=== PATIENT | male | born 1975 | race Caucasian/White ===

== ENCOUNTER 2021-06-03 01:09 | Outpatient (CLI) | payer MEDICAID, SELFPAY ==
--- NOTE | 2021-06-03 | DI.MRI_ITS ---
Exam(s) MR LOWER JOINT RT WO EXAM: MR LOWER JOINT RT WO CLINICAL HISTORY: LIGAMENTOUS LAXITY OF RT KNEE, M23.91, FAILED CONSERVATIVE MEASURES TECHNIQUE: Multiplanar multisequence MRI of the knee was performed. COMPARISON: No plain films of the knee available time this MRI interpretation FINDINGS: EFFUSION: There is a moderate size knee joint effusion. There is no Hoffmann cyst in the popliteal tejas a. MARROW:There are no fractures but there is some bone contusion signal seen in the anterior aspect of the distal femoral metaphysis. Also mild bone edema evident in the medial tibial plateau, posteriorl y. There are no significant osseous lesions. PATELLOFEMORAL COMPARTMENT: The quadriceps tendon is intact. The patellar ligament is intact. There is some fluid in the subcutaneous tissues evident anterior to the patellar ligament, consistent with an element of prepatellar bursitis. No abnormal signal within the intra-articular Hoffa fat pad nor at the level the quadriceps fat pad. There is surface abnormality of the retropatellar cartilage over the mid facet level with some focal thinning at this level and there is focal bone edema in the posterior aspect of the patella at the it s exact level. No formed osteochondral defect.There is no intraosseous signal to suggest recent galicia llar dislocation. There are no patellar retinacular tears. CRUCIATE LIGAMENTS: The anterior cruciate ligament is intact.The posterior cruciate ligament is intac t. MEDIAL COMPARTMENT/MEDIAL MENISCUS: Anterior horn of the medial meniscus appears unremarkable. At th e level of the root of the posterior horn there is intrasubstance signal abnormality but does not brandy ear to be a complete tear at this level. No bucket-handle configuration. Min no meniscocapsular sep aration no meniscal extrusion nor intrusion.. There are no chondral defects, osteochondral defects, subarticular marrow edema, nor osteophytes evid ent. MEDIAL COLLATERAL LIGAMENT: There is signal abnormality in the MCL slightly above the joint line junc tion with the medial patellar retinaculum, consistent with partial tearing. LATERAL COMPARTMENT/LATERAL MENISCUS: There is no evidence of lateral meniscal tear.There are no olaf dral defects, osteochondral defects, subarticular marrow edema, nor osteophytes evident. ILIOTIBIAL BAND: Intact LATERAL COLLATERAL LIGAMENT COMPLEX: The fibular collateral ligament is intact. The biceps femoris t endon is intact.Popliteus muscle and tendon are intact. IMPRESSION: 1. There is significant focal signal in the retropatellar cartilage over the mid facet level with mil d loss of cartilage over a width of 1 cm at this level (not full-thickness). There is immediately watson bjacent area of edema in the posterior patella at this level measuring 7 x 7 x 7 millimeters. There is also some edema evident within the corresponding anterior aspect of the intercondylar region of th e distal femur. There is also some cartilage loss at this level, more so medially than laterally. 2. Prepatellar subcutaneous edema and small amount of fluid. No tear of the quadriceps and patellar ligaments. 3. Mild tearing at the junction of the MCL and medial patellar retinaculum. 4. Mild findings at the level root of the posterior horn of the medial meniscus. Increased signal bu t doubtful for true meniscal tear at this level. 1. Cruciate ligaments are intact although there is a an 8 x 7 millimeter cyst associated with the inf erior aspect ACL, adjacent of the intimately associated with its distal lateral aspect. DATA REPOSITORY:
== END 2021-06-03 01:29 ==
PROVIDERS: Visit Provider Family Medicine
DX: M23.91 Unspecified internal derangement of right knee (principal); R93.7 Abnormal findings on diagnostic imaging of other parts of musculoskeletal system
CPT/HCPCS: 73721

== ENCOUNTER → 2021-09-16 02:12 | Outpatient (CLI) | payer MEDICAID, SELFPAY ==
--- NOTE | 2021-09-16 06:45 | DI.MRI_ITS ---
Exam(s) MR LOWER JOINT RT WO EXAM: MR LOWER JOINT RT WO CLINICAL HISTORY: internal derangement,chondromalacia rt patella, rt knee pain,m23.91,m22.41. TECHNIQUE: Multiplanar multisequence MRI was performed. COMPARISON: MR MR LOWER JOINT RT WO from 06/03/2021 FINDINGS: BONES: There is no fracture or contusion pattern. JOINTS: Articular cartilage: Mild thinning at the patellar apex cartilage. Some underlying high sign al. Minimal adjacent high signal in the marrow, improved from prior.. A small joint effusion is pre sent. TENDONS: Extensor mechanism: Unremarkable. Medial retinaculum: Unremarkable. Lateral retinaculum: Unremarkable. Popliteus: Unremarkable. MUSCLES: Unremarkable. MENISCI: The medial meniscus is unremarkable. The lateral meniscus is unremarkable. SOFT TISSUES: Mild anterior subcutaneous edema. LIGAMENTS: Anterior Cruciate: Unremarkable. Decreased size of previously noted cyst adjacent to the distal asp ect, tibial insertion of the ACL, now measuring 2 x 3 by 4 millimeters. Posterior Cruciate: Unremarkable. Medial Collateral:Unremarkable. Lateral Collateral: Unremarkable. OTHER: IMPRESSION: No evidence of ligament or meniscal tear. 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 Joint effusion. DATA REPOSITORY:
== END ==
PROVIDERS: PCP Family Medicine; Visit Provider Student in an Organized Health Care Education/Training Program
DX: M22.41 Chondromalacia patellae, right knee (principal); M23.91 Unspecified internal derangement of right knee; M25.461 Effusion, right knee
CPT/HCPCS: 73721

== ENCOUNTER 2021-09-16 08:33 | Emergency (ER) | payer MEDICAID, SELFPAY ==
[2021-09-16 08:36] VITALS: BP 134/91; PULSE 57; RESP 18; TEMP 35.9; O2SAT 100
--- OUTSIDE RECORDS SUMMARY | 2021-09-16 08:39 | XMS_ITS | Clinical Summary ---
:1975 Author Organization [facility] [place] [address] Care Team Providers Name Role Phone Shanell Ritter MD Primary Care Provider Allergies No known active allergies Medications Medication Sig Dispensed Refills Start Date End Date Status cyclobenzaprine Take 5 mg by 0 A ctive (FLEXERIL) 5 mg Tablet mouth 3 times daily as needed for Muscle spasms. HYDROcodone-acetaminophen Take 1 tablet 0 Active 5-325 mg Tablet by mouth every 6 hours as needed for Pain. Active Problems Problem Noted Date Right lumbar radiculitis 02/18/2014 Tinea corporis 11/08/2013 Thoracic or lumbosacral neuritis or radiculitis, unspe cified 04/03/2013 Low back pain 01/25/2013 Lumbar disc herniation with radiculopathy, Left L5 Social History Tobacco Use Types Packs/Day Years Used Date Never Smoker Smokeless Tobacco: Never Used Alcohol Use Standard Drinks/Week Comments Yes 0 (1 standard drink = 0.6 oz pure alcoho l) occsional Alcohol Habits Answer Date Recorded How often do you have a drink containing alcohol? Not asked How many drinks containing alcohol do you have on a typical Not asked day when you are drinking? How often do you have six or more drinks on one occasion? No t asked Comment: occsional 05/01/2013 Sex Assigned at Date Recorded Not on file Last Filed Vital Signs Vital Sign Reading Time Taken Comments Blood Pressure 120/68 02/18/2014 2:31 PM EST Pulse 53 05/02/2013 12:00 PM EST Temperature 36.6 ??C (97.9 ??F) 05/02/2013 9:25 AM EST Respiratory Rate 18 05/02/2013 12:00 PM EST Oxygen Saturation 100% 05/02/2013 12:00 PM EST Inhaled Oxygen Concentration - - Weight 93 kg (205 lb) 02/18/2014 2:31 PM EST Height 172.7 cm (5' 8) 02/18/2014 2:31 PM EST Body Mass Index 31.17 02/18/2014 2:31 PM EST Plan of Treatment Health Maintenance Due Date Last Done Comments Covid-19 Vaccine (#1) 12/13/1979 HIV screen 1992 Hepatitis C Screening 1992 Lipid Screening 1992 Tdap adult 1993 Tetanus vaccine 1993 Colonoscopy 12/13/2019 Influenza (Flu) vaccine (1 of 1 - Influenza standard 11/12/2021 series) Care Teams Process Safety Manager Relationship Specialty Start Date End Date Shanell Ritter MD PCP - General 02/19/[address] [place] [address]
--- OUTSIDE RECORDS SUMMARY | 2021-09-16 08:39 | XMS_ITS | Encounter Summary ---
:1975 Author Organization [facility] [place] [address] Care Team Providers Name Role Phone Shanell Ritter MD Primary Care Provider Encounter Details Date Type Department Care Team Description 05/27/2021 Interpretation Only [facility] [place], [place] [address] [address] [place], [place] [phone] (Wo rk) Social History Tobacco Use Types Packs/Day Years [...] Assigned at Date Recorded Not on file documented as of this encounter Plan of Treatment Not on filedocumented as of this encounter Procedures Procedure Name Priority Date/Time Associated Diagnosis Comme nts XR KNEE 4 OR MORE Routine 05/27/2021 10:50 AM Res ults for this VIEWS LEFT EDT procedure are i n the results section. documented in this encounter Results XR Knee 4 or more views Left (05/27/2021 10:50 AM EDT) P athologist Signature PT CLASS O DH RAD ADMITDTTM DH RAD PT RAD INFO [id number]^GE DH RAD NEREAUX^WILMA EN^H EXAM DESC XKN4L^XR LEFT RAD KNEE COMPLETE (4VIEWS)^RIS Anatomical Region Laterality Modality Knee Left Radiographic Imaging Specimen (Source) Anatomical Location Collection Method / Collectio n Time Received Time / Laterality Volume Impressions 05/27/2021 10:55 AM EDT No acute fracture or dislocation. Maintained joint spaces. No effusion. A tiny ossific density in the distal portion of the quadriceps tendon immediately above the insertion upon the upper pole of the patella. Thank you for letting us participate in the care of this patient. ??If you are a health care provider and have any questi ons regarding this report, please contact the number below. ??For patients who have questions please contact the health post acute care nurse practitioner that requested your imaging first. ? Electronically signed by: Chandler garsia MD, [facility] ([phone]), at 05/27/2021 10:55 AM Narrative 05/27/2021 10:55 AM EDT EXAMINATION: XR LEFT KNEE COMPLETE (4VIEWS) CLINICAL HISTORY: Pain of left patella. ??Anterior superior patellar irritation/pain left knee TECHNIQUE: 4 views of the left knee COMPARISON: None FINDINGS: See impression. Procedure Note Chandler Adams MD - 05/27/2021For matting of this note might be different from the original. EXAMINATION: XR LEFT KNEE COMPLETE (4VIE WS) CLINICAL HISTORY: Pain of left patella. Anterior superior patellar irritation/pain left knee TECHNIQUE: 4 views of the left knee COMPARISON: None FINDINGS: See impression. IMPRESSION No acute fracture or dislocation. Mainta ined joint spaces. No effusion. A tiny ossific density in the distal portion of the quadriceps tendon immediately above the insertion upon the upper pole of the patella. Thank you for letting us participate in the care of this patient. If you are a health care provider and have any questi ons regarding this report, please contact the number below. For patients w ho have questions please contact the health post acute care nurse practitioner that requested your imaging first. Abdiaziz Hurt MD IMG DX ORDERABLES documented in this encounter Visit Diagnoses Not on filedocumented in this encounter Care Teams Band Attacher Relationship Specialty Start Date End Date Shanell Ritter MD PCP - General 02/19/14 [address] [place] [address] documented as of this encounter
--- OUTSIDE RECORDS SUMMARY | 2021-09-16 08:40 | XMS_ITS | Encounter Summary ---
:1975 Author Organization [facility] [place] [address] Care Team Providers Name Role Phone Lori Adorno APRN Primary Care Provider Encounter Details Date Type Department Care Team Description 03/29/2013 Telephone Pain Management at [facility] [place], [place] [address] Social History Tobacco Use Types Packs/Day Years Used Date Never Smoker Smokeless Tobacco: Never Used Sex Assigned at Date Recorded Not on file documented as of this encounter Miscellaneous Notes Telephone Encounter - Xin Sal RN - 03/29/2013 10:40 AM EST Fluoroscopy Procedure Request Procedure Requested: lumbar epidural steroid injection. Date(s) of Last Procedure: 01/25/2013 Did requested procedure relieve pain? __x_ Yes - For 3 weeks. ___ No Patient taking anticoagulants? _x__ No ___ Yes Patient has pacemaker/defibrillator: No Changes in usual pain pattern or pertinent recent trauma or surgery? __x_ No, patient transferred or will be contacted by medical scheduler to make appointment for requested procedure. ___ Yes, patient referred for re-evaluation by referring provider. Patient's questions regarding requested procedure were answered and patient verbalized understanding. Patient knows how to contact the Pain Management Center and understands that they may do so at any time should they have further questions or concerns. Xin Sal RN documented in this encounter Plan of Treatment Not on filedocumented as of this encounter Visit Diagnoses Not on filedocumented in this encounter Care Teams Lead Developer Relationship Specialty Start Date End Date Lori Adorno APRN PCP - General 01/10/13 02/18/[address] [place] [address] documented as of this encounter
--- OUTSIDE RECORDS SUMMARY | 2021-09-16 08:40 | XMS_ITS | Encounter Summary ---
:1975 Author Organization [facility] [place] [address] Care Team Providers Name Role Phone Lori Adorno APRN Primary Care Provider Reason for Visit Reason Onset Date Comments Other 03/26/2013 follow up to injecti on Encounter Details Date Type Department Care Team Description 03/26/2013 Telephone Spine Center at [facility] non Akiko Matias Other (follow up to [facility] injection ) [place] [address] Social History Tobacco Use Types Packs/Day Years Used Date Never Smoker Smokeless Tobacco: Never Used Sex Assigned at Date Recorded Not on file documented as of this encounter Miscellaneous Notes Telephone Encounter - Akiko Matias RN - 03/26/2013 9:57 AM EST Received call from Mr. Zapata in follow up to his injection. He reports he felt a little better butstill is not able to do the things he would like to. He continues to have low back pain and left legpain. He is interested in moving forward with the MRI as previously discussed. Case was reviewed with Jenaro Butler PA-C. MRI order was placed. Scheduling was notified to contact the patient. 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
--- OUTSIDE RECORDS SUMMARY | 2021-09-16 08:40 | XMS_ITS | Encounter Summary ---
:1975 Author Organization [facility] [place] [address] Care Team Providers Name Role Phone Lori Adorno APRN Primary Care Provider Encounter Details Date Type Department Care Team Description 05/01/2013 External Results [place] [address] Social History Tobacco Use Types Packs/Day [...] on filedocumented in this encounter Care Teams Universal Worker Assisted Living Relationship Specialty Start Date End Date Lori Adorno APRN PCP - General 01/10/13 02/18/[address] [place] [address] documented as of this encounter
--- OUTSIDE RECORDS SUMMARY | 2021-09-16 08:40 | XMS_ITS | Encounter Summary ---
:1975 [place] [address] Care Team Providers Name Role Phone Lori Adorno APRN Primary Care Provider Encounter Details Date Type Department Care Team Description 01/25/2013 Orders Only [facility] [place] [facility] Krista Luque MD [facility] [place] [address] PAIN CLINIC [phone] [place], [place] [address] (Wo rk) Social History Tobacco Use Types Packs/Day Years Used Date Never Smoker Smokeless Tobacco: Never Used Sex Assigned at Date Recorded Not on file documented as of this encounter Plan of Treatment Pending Results Name Type Priority Associated Diagnoses Date/Ti me Film Library-storage Imaging Routine 013 1:00 PM EST only pain clinic C-arm Scheduled Orders Name Type Priority Associated Diagnoses Order S chedule Film Library-storage Imaging Routine Once NC N (for Radiant use) only pain clinic for 1 Occur rences starting C-arm 01/25/2013 unti l 01/25/2013 documented as of this encounter Visit Diagnoses Not on filedocumented in this encounter Care Teams Seo Expert Relationship Specialty Start Date End Date Lori Adorno APRN PCP - General 01/10/13 02/18/14 [address] [place] [address] documented as of this encounter
--- OUTSIDE RECORDS SUMMARY | 2021-09-16 08:40 | XMS_ITS | Encounter Summary ---
:1975 Author Organization [facility] [place] [address] Care Team Providers Name Role Phone TilaLori ANTHONY Primary Care Provider Reason for Referral Consultation (Routine) - Closed Specialty Diagnoses / Procedures Referred By Contact Refer red To Contact Pain Management Diagnoses Neuritis or radiculitis due to displacement of lumbar intervertebral disc [facility] [address] [address] [place] [address] Phone: Fax: Referral ID Status Reason Start Date Expiration Date Visits Requ ested Visits Authorized [id number] Closed Other 01/10/2013 07/09/2013 3 3 Reason for Visit Reason Comments Back Pain Encounter Details Date Type Department Care Team Description 01/10/2013 Office Visit Spine Center at Jenaro Butler, Neuritis or radiculitis [place] PA due to displacement of [facility] in tervertebral [facility] [address] (Primary Dx) [place], [place] [facility] [address] [place] [address] [phone] Social History Tobacco Use Types Packs/Day Years Used Date Never Smoker Smokeless Tobacco: Never Used Sex Assigned at Date Recorded Not on file documented as of this encounter Last Filed Vital Signs Vital Sign Reading Time Taken Comments Blood Pressure 110/64 01/10/2013 9:22 AM EDT Pulse - - Temperature - - Respiratory Rate - - Oxygen Saturation - - Inhaled Oxygen Concentration - - Weight 90.7 kg (200 lb) 01/10/2013 9:22 AM EDT Height 172.7 cm (5' 8) 01/10/2013 9:22 AM EDT Body Mass Index 30.41 01/10/2013 9:22 AM EDT documented in this encounter Progress Notes Jenaro Butler PA - 01/10/2013 11:28 AM EDT Chief Complaint: Chief Complaint Patient presents with ??? Back Pain HPI: This patient is a 37 y.o. male that presents to the spine center for Chronic low back pain withleft radicular symptoms. I previously saw this patient about 2 years ago and he responded favorably to an LESI. However he indicates that later that year around August of 2010 his symptoms started to redevelop, and he relates it to a new injury. He has been attempting to manage his symptoms with just physical therapy but has not found this to be successful. His primary pain is low back pain which is constant we will get episodic shooting pain in the left leg traveling down the posterior thigh into theshin. He feels his pain has been progressively worsening and is decreasing his ability to do work. He does not report any numbness or tingling. He rates his pain currently as a 3/10 with pain ranging between 1-7. His symptoms are aggravated primarily with physical activity such as bending and lifting,but also to be worsened with inactivity he feels best laying supine. There is no bowel or bladder inc ontinence. Recent treatments have included physical therapy and ibuprofen but he has had an LESI. Johan has had an L5-S1 discectomy performed in 2006. There is no history of cancer. ROS: Negative for any GI, or constitutional symptoms. Medications & Allergies: Are updated on the system. Problem List: Patient Active Problem List Diagnosis Code ??? left L5 radiculitis due to displacement of lumbar intervertebral disc 722.10 PMH: No past medical history on file. PSH: No past surgical history on file. Social Hx: History Social History ??? Marital Status: Spouse Name: N/A Number of Children: N/A ??? Years of Education: N/A Occupational History ??? Not on file. Social History Main Topics ??? Smoking status: Never Smoker ??? Smokeless tobacco: Never Used ??? Alcohol Use: Not on file ??? Drug Use: Not on file ??? Sexually Active: Not on file Other Topics Concern ??? Not on file Social History Narrative ??? No narrative on file Physical Exam: This patient is a reasonably healthy appearing 37-year-old male is alert and oriented x3. He stands without any scoliosis. He relates with a nonantalgic gait and was able to toe and heel walk. He has recently good lumbar flexion and extension which primarily cause low back pain. Neurologically sensation, reflexes and motor testing were intact in both lower extremity. Straight leg raise on the left isnegative with only low back pain. Babinski and clonus are negative. Distal pulses are intact. Imaging: His previous MRI from 2010 demonstrates that he did have postsurgical changes at L5-S1 withdisc space collapse at this level. He also degenerative changes to the discs mildly at L3-L4 and L4-L5 but there was a left paracentral disc protrusion at L4-L5 causing the L5 nerve root compression. Assessment: Continued chronic mechanical low back pain with left radicular symptoms likely associated with disc herniation at L4-L5. Plan: I have reviewed with the patient that his symptoms are likely still consistent with a disc herniation although his primary symptom his low back pain. I reviewed surgical and nonsurgical treatmentoptions with the patient. If he would like to proceed with repeating an LESI he is welcome to do this without updating images at this time. However if his symptoms do not improve or if he is more interested in a surgical consultation, then we would need to update the MRI for the surgeon. The patient indicates that he would not like to proceed with further therapy at this time as he has not found significant improvement in this manner. He is not strongly interested in surgery at this time. He thinks p roceeding with the LESI would be reasonable. We also discussed the functional quaker program asan option. After our discussion and answering the patients questions, we have come to an aggreement in the below stated plan: 1) I have referred the patient to the pain center for a trial of an LESI and He will call the spine center nursing staff back about 3-4 weeks after the injection to report the outcomes of the injection. If he is better then we can watch and wait to see what his symptoms return or if they do, if they do decide at that time whether to proceed with the MRI or repeat the injection. If he is no better, I would update the MRI with and without contrast in followup with him after the images are complete consider a surgical consult. This dictation was performed using [employer] voice recognition dictation. 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
--- OUTSIDE RECORDS SUMMARY | 2021-09-16 08:40 | XMS_ITS | Encounter Summary ---
:1975 Author Organization [place] [address] Care Team Providers Name Role Phone Lori Adorno APRN Primary Care Provider Reason for Visit Reason Onset Date Comments Pre Procedure Call 04/20/2013 Encounter Details Date Type Department Care Team Description 04/20/2013 Telephone [facility] Josefina Houston, Pre Procedure Call [facility] [place] [phone] Social History Tobacco Use Types Packs/Day Years Used Date Never Smoker Smokeless Tobacco: Never Used Sex Assigned at Date Recorded Not on file documented as of this encounter Miscellaneous Notes Telephone Encounter - Josefina Bolivar LPN - 04/20/2013 2:19 PM EST Call placed to patient; patient unavailable; answered phone and stated he was unavailable. Advised , Fco needed to hold anticoagulants, NSAIDs, ASA products, and FishOil for 7-10 days preoperatively. Reviewed medication/allergy list; updated. voiced understanding for patient to stop all anticoagulants, NSAID's, ASA products and fish oilfor 7-10 days preoperatively. [place] get in touchwith him TANYA. Patient has not had his FLU or Pneumonia immunizations. Phone number and office hours given if the patient had any questions prior to surgery. documented in this encounter Plan of Treatment Not on filedocumented as of this encounter Visit Diagnoses Not on filedocumented in this encounter Care Teams Lap Machine Tender Relationship Specialty Start Date End Date Lori Adorno APRN PCP - General 01/10/13 02/18/[address] [place] [address] documented as of this encounter
--- OUTSIDE RECORDS SUMMARY | 2021-09-16 08:40 | XMS_ITS | Encounter Summary ---
:1975 Author Organization [facility] [place] [address] Care Team Providers Name Role Phone Jenaro Pena MD Primary Care Provider [phone] Encounter Details Date Type Department Care Team Description 04/30/2011 Hospital Encounter [facility], Left L5/S1 radiculitis [facility] CONV due to di splacement of Drive lumbar [place] disc [phone] Social History Tobacco Use Types Packs/Day Years Used Date Never Smoker Smokeless Tobacco: Never Used Sex Assigned at Date Recorded Not on file documented as of this encounter Medications at Time of Discharge Medication Sig Dispensed Refills Start Date End Date methylPREDNISolone Take 1 tablet by 21 tablet 0 04/28/2011 05/28/2011 (MEDROL, OANH,) 4 mg mouth. Per dose tabletIndications: pack instructions Neuritis/radiculitis due to displacement of lumbar intervertebral disc traMADol (ULTRAM) 50 mg Take 50 mg by mouth 0 05/28/2011 tablet as needed. acetaminophen (TYLENOL) Take by mouth every 0 05/28/2011 325 mg tablet 6 hours as needed. naproxen (NAPROSYN) 375 mg Take 375 mg by 0 05/28/2011 tablet mouth 2 times daily (with meals). documented as of this encounter Miscellaneous Notes Miscellaneous - Provider, Scanning - 05/11/2011 1:48 PM EST documented in this encounter Plan of Treatment Not on filedocumented as of this encounter Procedures Procedure Name Priority Date/Time Associated Diagnosis Comme nts MRI LUMBAR SPINE Routine 04/30/2011 8:54 AM Left L5/S1 radicul itis Results for this WITH/WO CONTRAST EST due to displacement of p rocedure are in lumbar intervertebral the re sults disc section. documented in this encounter Results MRI lumbar spine with/WO contrast (04/30/2011 8:54 AM EST) Anatomical Region Laterality Modality L-spine Magnetic Resonance Specimen (Source) Anatomical Collection Method Collection Time Re ceived Time Location / / Volume Laterality 04/30/2011 8:54 AM EST Impressions 04/30/2011 2:54 PM EST IMPRESSION: ??Left paracentral disk extrusion at L4-5 narrowing the lateral recess and contacting the left L5 root. Narrative 04/30/2011 2:54 PM EST MR LUMBAR SPINE WITH AND WITHOUT CONTRAST HISTORY: ??Back and left radicular pain post L5-S1 diskectomy for radicular symptoms, question HNP versus scar. TECHNIQUE: ??MRI of the lumbar spine per formed prior to and following intravenous administration of 20 mL Magn evist. CONTRAST: ??20 mL Magnevist. COMPARISON: ??MR 10/11/2006 FINDINGS: ??Overall alignment of the lum bar spine is normal. ??There are no aggressive marrow lesions. ??Visualizati on of the retroperitoneum is normal. ?? Normal appearing conus terminates at the L2 level. ?? Findings at specific levels: L1-2: ??Normal. L2-3: ??Normal. L3-4: ??There are disk degenerative goetz ges. ??An annular fissure is present. ??No central canal narrowing is present. ??Th ere is no foraminal narrowing. L4-5: ??Left paracentral disk extrusion is present with caudal migration. ??There is a small amount of enhancement at the margins. ??Disk extrusion narrows the lateral recess and appears to contact th e traversing left L5 root. L5-S1: ??Postsurgical changes are presen t. ??There is enhancing material at the disk space anteriorly. ??There is slight retrolisthesis of L5 on S1. ??No significant central canal narrowing is p resent. ??There is facet arthropathy with mild bilateral neural foraminal jagjit rowing. Procedure Note Abdiaziz Petersen MD - 04/30/2011Format ting of this note might be different from the original. MR LUMBAR SPINE WITH AND WITHOUT CONTRAS T HISTORY: Back and left radicular pain po st L5-S1 diskectomy for radicular symptoms, question HNP versus scar. TECHNIQUE: MRI of the lumbar spine perfo rmed prior to and following intravenous administration of 20 mL Magn evist. CONTRAST: 20 mL Magnevist. COMPARISON: MR 10/11/2006 FINDINGS: Overall alignment of the lumba r spine is normal. There are no aggressive marrow lesions. Visualization of the retroperitoneum is normal. Normal appearing conus terminates at the L2 level. Findings at specific levels: L1-2: Normal. L2-3: Normal. L3-4: There are disk degenerative change s. An annular fissure is present. No central canal narrowing is present. Ther e is no foraminal narrowing. L4-5: Left paracentral disk extrusion is present with caudal migration. There is a small amount of enhancement at the margins. Disk extrusion narrows the lateral recess and appears to contact th e traversing left L5 root. L5-S1: Postsurgical changes are present. There is enhancing material at the disk space anteriorly. There is slight r etrolisthesis of L5 on S1. No significant central canal narrowing is p resent. There is facet arthropathy with mild bilateral neural foraminal jagjit rowing. IMPRESSION IMPRESSION: Left paracentral disk extrus ion at L4-5 narrowing the lateral recess and contacting the left L5 root. 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
--- OUTSIDE RECORDS SUMMARY | 2021-09-16 08:40 | XMS_ITS | Encounter Summary ---
:1975 Author Organization [facility] [address] Care Team Providers Name Role Phone Jenaro Pena MD Primary Care Provider Reason for Referral Physical Therapy (Routine) - Closed Specialty Diagnoses / Procedures Referred By Contact Refer red To Contact Physical Therapy Diagnoses Neuritis/radiculitis due to displacement of lumbar intervertebral disc [facility] Spine Pt [facility] [place] [place] [phone] Phone: Referral ID Status Reason Start Date Expiration Date Visits V isits Requested Authorized [id number] Closed Evaluate and 03/17/2011 09/13/2011 12 12 Treat Reason for Visit Reason Comments Back Pain Encounter Details Date Type Department Care Team Description 03/17/2011 Office Visit [facility], Left L5/ S1 radiculitis [place] due to displacement of [facility] lumbar in tervertebral [facility] [address]tt (Primary Dx) [place], [place] [facility] [id number] [place] [address] [phone] Social History Tobacco Use Types Packs/Day Years Used Date Never Smoker Sex Assigned at Date Recorded Not on file documented as of this encounter Last Filed Vital Signs Vital Sign Reading Time Taken Comments Blood Pressure 175/81 03/17/2011 8:48 AM EST Pulse 110 03/17/2011 8:48 AM EST Temperature - - Respiratory Rate - - Oxygen Saturation 99% 03/17/2011 8:48 AM EST Inhaled Oxygen Concentration - - Weight 89.8 kg (198 lb) 03/17/2011 8:49 AM EST Height 175.3 cm (5' 9) 03/17/2011 8:49 AM EST Body Mass Index 29.24 03/17/2011 8:49 AM EST documented in this encounter Progress Notes [facility] PA - 03/17/2011 9:57 AM EST Subjective: Patient ID: Fco Zapata is a 35 y.o. male. Back Pain This is a recurrent problem. The current episode started in the past 7 days. The problem occurs constantly. The problem has been gradually worsening since onset. The pain is present in the lumbar spineand gluteal. The pain radiates to the left thigh and left foot. The pain is at a severity of 4/10. The symptoms are aggravated by sitting, standing and bending. Associated symptoms include leg pain, numbness and tingling. Pertinent negatives include no bladder incontinence, bowel incontinence, fever, weakness or weight loss. Risk factors: s/p L5-S1 diskectomy. He has tried NSAIDs, muscle relaxant andanalgesics for the symptoms. The treatment provided no relief. Review of Systems Constitutional: Negative for fever, chills and weight loss. Gastrointestinal: Positive for constipation. Negative for bowel incontinence. Genitourinary: Negative. Negative for bladder incontinence. Musculoskeletal: Positive for back pain. Neurological: Positive for tingling and numbness. Negative for weakness. Objective: Physical Exam Back Exam Sensation: Decreased. Gait: Antalgic. Tenderness The patient is experiencing tenderness in the L5-S1. Range of Motion Flexion: 20 Extension: 10 Lateral Bend Left: Lateral Bend Right: Rotation Right: Rotation Left: SLR Right: Negative Left: Positive Tests Toe Walk: Normal Heel Walk: Normal Reflexes Patellar: 2/4 Achilles: 2/4 Babinski: Normal Comments: Alignment: no scoliosis, he stands offloading his left leg. There is a surgical scar in the midline at L5-S1. Gait: antalgic on the left. ROM: there was back and leg pain with flexion and extension. Sensation: decreased in the left leg at the foot and lateral/posterior calf. SLR: positive inthe seated and supine position. Negative CSLR. No clonus. Distal pulses are intact. Neurologic Exam Assessment and Plan: Imaging: There are no current images for the lumbar spine, but there was an old MRI from 2006 on [facility] [place] indicated a disk extrusion at L5-S1 to the right. Assessment: Acute left L5/S1 radicular symptoms. In Summary: This patient is a 35-year-old male that is status post L5-S1 diskectomy performed in 2006 for right radicular symptoms have significantly improved his pain symptoms but did leave him with episodic back pain symptoms. About 1 month ago he noticed a slight increases back pain from the usual level and then about a week and a half ago he suddenly developed an acute onset of left leg pain symptoms that he feels is very similar to his prior right radicular symptoms. His leg pain and follows the posterior thigh into the lateral calf with tingling and numbness along the lateral foot and dorsal aspect of the foot. He feels his leg pain is worse than his back pain at 70% leg pain. He rates his pain between a 3-9/10. He feels worse with sitting or standing positions and feels better lying supine. 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 He is not certain if there is any specific weakness but he does not describe any bowel or bladder incontinence. To this point he is only been treated with pain medications such as tramadol, Tylenol, naproxen and Flexeril. He reports his primary care physician tried to order an MRI but this was rejected by his [employer]. His physical exam findings reveals that he is a fairly fit and healthy [id number] but is laying on the table in clear discomfort. He was able to stand up slowly and emulate withan antalgic gait on his left leg. He stood offloading the left leg and had limited lumbar range of motion with only about 10-20 degrees of motion in flexion or extension which caused both back and leg pain symptoms. Neurologically he had decreased sensation in his left foot and also in the lateral andposterior calf and there was some mild weakness with plantar flexion. His reflexes were normal. He did have a positive straight leg raise on the left in both the seated and supine positions. He did appear to be able to toe and heel walk although this could increase some of his calf pain symptoms. Thisleads me to feel the patient is dealing with an acute left L5/S1 radiculopathy from a likely disk herniation in his lumbar spine. Plan: I have discussed the diagnosis of disk herniations with the patient, and the fact that these symptoms are hurtful and not harmful. Treatments are based on a patient preference at this time. I diddiscuss the SPORT study which indicates that surgery is the best immediated treatment for these symptoms, but with time most patients will have improvement with their symptoms in 3-6 months. I encouraged the patient to stay active, with swimminga and walking activities, as they will not do any harm tothemselves. Other treatment options include: physical therapy with a Jonnathan based program, NSAIDS/Tylenol, LESI and surgery. I did discuss with the patient that is not uncommon for insurance companies to deny an MRI with the patient who has acute pain symptoms. Most patients who have these symptoms will improve within a few weeks. I have suggested attempting physical therapy here in the spine center, as I understand he is doing some physical therapy locally but the therapist has been limited as towhat can be offered. I feel are therapist may be able to give him some further guidance to see if hemechanically can improve his pain symptoms. I also recommended doing a steroid dose pack as this mayprovide some acute reduction in his pain symptoms and move them in the right direction. I will attempt to order an MRI for the lumbar spine, but this may be again denied by his insurance company until he attempts further physical therapy and a steroid Dosepak. I've again discussed that these symptoms are hurtful and not harmful and we'll not provide any long-term concerns. His greatest concern would be his financial strain, and while I do understand that this is a difficult situation, I can only offer him treatments that are considered to be reasonable at this time frame. We did also discuss that if the disk herniation is not of significant size presuming that there is also a disk herniation present, then an epidural steroid injection may be the recommended option over surgery. After our discussion and answering the patients questions, we have come to an aggreement in the below stated plan: 1) I did order an MRI with gadolinium of the lumbar spine to evaluate if there is a disk herniation or scar tissue. I will followup with the patient after the MRI has been performed. 2) I have referred the patient to physical therapy in the Spine Center, to be treated with a mechanical, Jonnathan based approach, and consider Mulligan techniques. 3) I have wrote a prescription for a Medrol Dosepak which he will take as prescribed. documented in this encounter Plan of Treatment Scheduled Referrals Name Type Priority Associated Diagnoses Order S chedule REFERRAL TO Outpatient Referral Routine Left L5/S1 radiculiti s Ordered: PHYSICAL THERAPY due to displacement of 0 03/17/2011 lumbar intervertebral disc documented as of this encounter Results MRI lumbar spine with/WO [...] to displaceme nt of lumbar intervertebral disc - Primary Displacement of lumbar intervertebral di sc without myelopathy Left L5/S1 radiculitis due to displaceme nt of lumbar intervertebral disc Displacement of lumbar intervertebral di sc without myelopathy documented in this encounter Care Teams Tire Vulcanizer Relationship Specialty Start Date End Date Jenaro Pena MD PCP - General 03/16/11 01/09/[address] [place] [address] documented as of this encounter
--- OUTSIDE RECORDS SUMMARY | 2021-09-16 08:40 | XMS_ITS | Encounter Summary ---
:1975 Author Organization [facility] [place] [address] Care Team Providers Name Role Phone Lori Adorno APRN Primary Care Provider Reason for Visit Reason Onset Date Comments Follow-up 05/02/2013 Encounter Details Date Type Department Care Team Description 05/02/2013 Telephone [facility] PA Follow-up [facility] [place] [phone] [facility] [phone] [place] [id number] (Wo rk) Social History Tobacco Use Types [...] this encounter Miscellaneous Notes Telephone Encounter - Jenaro Butler PA - 05/02/2013 2:56 PM EST I have contacted the PCP office today to confirm that she had seen the MRI report with the un-expecting finding on it. One of the nursing staff confirmed that it has been received and reviewed. documented in this encounter Plan of Treatment Not on filedocumented as of this encounter Visit Diagnoses Not on filedocumented in this encounter Care Teams Chronometer Assembler And Adjuster Relationship Specialty Start Date End Date Lori Adorno APRN PCP - General 01/10/13 02/18/[address] [place] [address] documented as of this encounter
--- OUTSIDE RECORDS SUMMARY | 2021-09-16 08:40 | XMS_ITS | Encounter Summary ---
:1975 Author Organization [facility] Address [place] [address] Care Team Providers Name Role Phone Lori Adorno ANTHONY Primary Care Provider Reason for Visit Reason Comments Back Pain Encounter Details Date Type Department Care Team Description 04/03/2013 Office Visit [facility], Neuritis or radiculitis [place] JEAN CARLOS [facility] to [facility] [place], [place] [facility] [id number] [place] [address] [phone] Social History Tobacco Use Types Packs/Day Years Used Date Never Smoker Smokeless Tobacco: Never Used Sex Assigned at Date Recorded Not on file documented as of this encounter Last Filed Vital Signs Vital Sign Reading Time Taken Comments Blood Pressure - - Pulse - - Temperature - - Respiratory Rate - - Oxygen Saturation - - Inhaled Oxygen Concentration - - Weight 90.7 kg (200 lb) 04/03/2013 11:37 AM EST Height 172.7 cm (5' 8) 04/03/2013 11:37 AM EST Body Mass Index 30.41 04/03/2013 11:37 AM EST documented in this encounter Patient Instructions Patient Josefina Peters LPN - 04/03/2013 11:38 AM EST I would like you to sign up for myD-H, which will give you secure online access to your electronic medical record at [facility] and the ability to communicate with your health care team when and where it???s most convenient for you. With myD-H you will be able to: - look at parts of your medical record including test results and office notes - send and receive messages to/from me and your other providers - renew prescriptions - schedule appointments. To sign up, go to [email or web address] and click I have an activation code and follow the instructions. Here is your activation code: [email or web address] Expires: 05/18/2013 11:38 AM Remember, myD-H is NOT for urgent needs! Always dial 911 for medical emergencies. documented in this encounter Progress Notes Jenaro Butler PA - 04/03/2013 12:04 PM EST SUBJECTIVE: Mr. Zapata is a 37-year-old male that presents to the spine center for followup visit on chronic low back pain with left radicular pain symptoms. When I last saw the patient, he reported a fairly long lasting relief to an epidural steroid injection over a year ago. The symptoms eventually redeveloped, and therefore we tried a repeat LESI. He apparently did not get as successful a response to the second injection and therefore we did order an MRI. He reports that he just had a third LESI performed today and does not know its response at this time. He is here to review the MRI finding and make discussions on his future plans. His primary pain symptoms are in his low back and left hip/buttock, but he does also have some pain in an L5 distribution down into the lateral/anterior vasquez. There is no bowel or bladder incontinence. REVIEW OF SYSTEMS: Negative for an GI, , or constitutional symptoms. MEDICATIONS: Reviewed and updated on the system. ALLERGIES: REVIEWED AND UPDATED ON THE SYSTEM. Problem List: Patient Active Problem List Diagnosis Code ??? left L5 radiculitis due to displacement of lumbar intervertebral disc 722.10 ??? Low back pain 724.2 ??? Thoracic or lumbosacral neuritis or radiculitis, unspecified 724.4 PMH: Past Medical History Diagnosis Date ??? left L5 radiculitis due to displacement of lumbar intervertebral disc 04/28/2011 PSH: No past surgical history on file. [...] History Narrative ??? No narrative on file OBJECTIVE: This was a discussion-based visit and I did not perform a physical exam of the patient at today's visit. He is a reasonably healthy 37-year-old male who is alert and oriented x3. IMAGING: The patient does have an updated MRI of the lumbar spine which does reveal that he has postsurgical changes at the L5-S1 level with right-sided hemilaminectomy and likely diskectomy. There are degenerative disk changes at this level. At the L4-L5 level, there is degenerative disk changes, but there is a superimposed left paracentral disk extrusion that migrates caudally and does compress the L5 nerve root in the lateral recess. This does appear to be larger than the previous MRI. There are some mild degenerative changes also noted at L3-L4 but without disk herniation identified. 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 This was reviewed with the patient. ASSESSMENT: Symptomatic back with left radicular pain symptoms that would be associated with a disk herniation at the L4-L5 level. PLAN: I have discussed with the patient the nature of the disk herniations and radicular symptoms. We have again reviewed the surgical and nonsurgical management options. The surgery would likely entail a lumbar diskectomy at this level. As he just had the injection performed today, I would have him wait at least two weeks to see how he responds to this injection. If he has a favorable response, then we will await to see how long this injection lasts. If he does not appear to have a favorable response, the next step would be to have the patient seen by one of the spine surgeons for a surgical consultation. However, the patient would be welcomed to consider a third injection for this year if he would like to, and we also briefly discussed he is also welcome to consider the functional pentecostal program. However, my recommendation would be to consider the surgical consult medically. The patient's questions were answered. After our discussion, we have come to an agreement on the below stated plan: 1) The patient will wait about two weeks to see how he responds to injection and he will contact the spine center nursing staff if he needs to see one of the spine surgeons at a later date. Approximately 15 minutes of this 20-minute visit was spent in reviewing his imaging, medical decision making, and planning. documented in this encounter Plan of Treatment Not on filedocumented as of this encounter Visit Diagnoses Diagnosis Neuritis or radiculitis due to displacem ent of lumbar intervertebral disc - Primary Displacement of lumbar intervertebral di sc without myelopathy documented in this encounter Care Teams Occupational Therapist'S Assistant Relationship Specialty Start Date End Date Lori Adorno APRN PCP - General 01/10/13 02/18/[address] [place] [address] documented as of this encounter
--- OUTSIDE RECORDS SUMMARY | 2021-09-16 08:40 | XMS_ITS | Encounter Summary ---
:1975 Author Organization [facility] Address [address] [place] [address] Care Team Providers Name Role Phone Jenaro Pena MD Primary Care Provider [phone] Reason for Visit Reason Comments Backache Follow up Encounter Details Date Type Department Care Team Description 04/28/2011 Follow-Up [facility] at [facility], left L5 radiculitis due Kian EVANGELISTA to displacement of lumbar [facility] int [facility] disc [address] (Primary Dx) [place], [place] [facility] [id number] [place] [address] [phone] Social History Tobacco Use Types Packs/Day Years Used Date Never Smoker Smokeless Tobacco: Never Used Sex Assigned at Date Recorded Not on file documented as of this encounter Last Filed Vital Signs Vital Sign Reading Time Taken Comments Blood Pressure - - Pulse - - Temperature - - Respiratory Rate - - Oxygen Saturation - - Inhaled Oxygen Concentration - - Weight 89.8 kg (198 lb) 04/28/2011 12:51 PM EST Height 175.3 cm (5' 9) 04/28/2011 12:51 PM EST Body Mass Index 29.24 04/28/2011 12:51 PM EST documented in this encounter Progress Notes Jenaro Butler, PA - 04/28/2011 5:26 PM EST Subjective: Patient ID: Fco Zapata is a 35 y.o. male. HPI Comments: This patient is a 35-year-old male that is status post right-sided L5-S1 diskectomy that presents to the spine center with acute onset of low back pain and left L5/S1 radicular symptoms. At the last visit I recommended doing physical therapy with a Jonnathan based approach and also getting an updated MRI with gadolinium. The patient reports that he was unable to get the MRI as his pain was considered to be acute, and his insurance company denied the claim initially. The patient did feelhe had some improvement with a steroid dose pack which I did prescribe for him at the last visit. Since last visit he noticed at 1st but he developed more increased numbness in the left leg that was initially only in the foot but felt that it went up towards the knee. However the numbness is now improved to the point that it is only in the foot again. He also started to notice some weakness in his left leg as well. He does not describe any changes to the leg pain is is still goes down the posterior thigh to the calf. He has been out of work for approximately 2 months due to these pain symptoms and would like to return to his ability to function at work. He rates his pain currently is a 1/10 with pain ranging between 1-6. He is unable to describe a specific aggravating factor for his pain symptomsbut feels better generally moving. He does not describe any bowel or bladder incontinence. Review of Systems Constitutional: Negative. Gastrointestinal: Negative. Genitourinary: Negative. Objective: Physical Exam Back Exam Sensation: Decreased. Gait: Normal. Tenderness The patient is experiencing tenderness in the At about L4-L5.. Range of Motion Flexion: 70 Extension: 30 Lateral Bend Left: Lateral Bend Right: Rotation Right: Rotation Left: SLR Right: Negative Left: Positive Tests Toe Walk: Normal Heel Walk: Abnormal Reflexes Patellar: 2/4 Achilles: 2/4 Babinski: Normal Comments: Gait: The patient had difficulty heel walking on the left leg. Range of motion: There is reproduction of leg pain on lumbar flexion and only back pain on extension. Sensation: Decreased in the 1st webspace of the left foot. Strength: 4/5 strength with left EHL and dorsiflexion. SLR: Did reproduce his pain symptoms down to the calf on the left leg. There is no clonus and distal pulses are intact. Neurologic Exam Assessment and Plan: Imaging: There is no current MRI for this patient Assessment: Continued acute left L5 radiculopathy from a likely disk herniation. Plan: I did review with the patient that his symptoms are likely associated with a disk herniation and that the tendency for disk herniation is that the symptoms will likely improve but can take a longtime to resolve. As he does have significant disfunction worries unable to work, it would make senseto progress his treatment option beyond just physical therapy. I did inform him that if he is not interested in considering injections or surgery at this time, and we certainly would not want to updateMRI as he would not influence how we would go about treating his symptoms. However, I certainly feelthat an injection at this point would be a reasonable option. The patient does have some concerns that he is not certain he would like to have surgery as he has had one prior spine surgery in the past.He does feel though he would like to progress with an option such as an injection to try to improve his symptoms further. I did recommend that he can continue with his current physical therapy plan. I did inform him that the pain center here is also running a study to compare oral steroids to injectable steroids. Since she has been about 1 month since his prior oral steroid dose pack he did have someimprovement on it, it may make sense while we are awaiting the MRI for him to go through the trial of the oral steroids again and he can be a part of the study. He has elected since he does have continued pain to go with the oral steroids along with updating MRI. After our discussion and answering thepatients questions, we have come to an aggreement in the below stated plan: 1) I did write a prescription for a Medrol Dosepak which she will be taking as prescribed and I did have the pain center provider stepped into the room to discuss the study indications with him. 2) as the MRI was already ordered, I will have the patient discuss a scheduled appointment with our scheduling bilingual secretary to have the MRI performed in follow up with me after the MRI. As he has had a prior spine surgery he should be performed with gadolinium. 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
--- OUTSIDE RECORDS SUMMARY | 2021-09-16 08:40 | XMS_ITS | Encounter Summary ---
:1975 Author Organization [facility] Address [address] [place] [id number] Care Team Providers Name Role Phone Lori Adorno APRN Primary Care Provider Reason for Visit Reason Comments Follow Up Surgery Encounter Details Date Type Department Care Team Description 05/31/2013 Office Visit [facility] at [facility] Lumbar d isc herniation Kian BAUTISTA with radiculopathy, [facility] L5 (Primary Dx) Drive [place] [facility] [address] [place] [address] [phone] Social History Tobacco Use Types Packs/Day Years [...] - - Weight 90.7 kg (200 lb) 05/31/2013 4:10 PM EDT Height 172.7 cm (5' 8) 05/31/2013 4:10 PM EDT Body Mass Index 30.41 05/31/2013 4:10 PM EDT documented in this encounter Progress Notes Karl Rod MD - 05/31/2013 4:48 PM EDT Mr. Zapata returns at this time with regards to his lumbar disk surgery on 05/02/2013 where he underwent a disk excision left L4-L5. Intraoperative findings demonstrated extruded, but it contained disk material deep to the shoulder on the left L5 nerve root and medial to the left L5 pedicle, which was fully excised living the left L5 nerve root fully decompressed and mobile. Today, he reports that his left leg is completely asymptomatic. He has had previous surgery at L5-S1 right side, and he notes some mild discomfort in the right posterior thigh, which is not the operative side, on very rare occasion does it go below the knee and on no occasion is at a problem, it is just noted that it is present. His incision is well healed and completely benign. His gait is normal. He could toe and heel walk without weakness. His lower extremity motor examination is entirely normal. His sensory function is intact to light touch. His reflexes are 1 at the knees and right ankle, 2 at the left ankle. His straight leg raise test is negative. His calf musculature is soft and nontender bilaterally. Mr. Zapata is a month out from surgery. He is doing quite well. He is pleased with his overall outcome. 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 I suggested taking if possible up to three months before he really starts pushing his back and even then being cautious about lifting, bending, twisting, rotation, and stressing and straining type maneuvers, which may put him at risk for recurrence. I will recheck as needed. documented in this encounter Plan of Treatment Not on filedocumented as of this encounter Visit Diagnoses Diagnosis Lumbar disc herniation with radiculopath y, Left L5 - Primary Displacement of lumbar intervertebral di sc without myelopathy documented in this encounter Care Teams Lsw Relationship Specialty Start Date End Date Lori Adorno APRN PCP - General 01/10/13 02/18/14 [address] [place] [address] documented as of this encounter
--- OUTSIDE RECORDS SUMMARY | 2021-09-16 08:40 | XMS_ITS | Encounter Summary ---
:1975 Author Organization [facility] [place] [address] Care Team Providers Name Role Phone Jenaro Pena MD Primary Care Provider [phone] Encounter Details Date Type Department Care Team Description 03/17/2011 Hospital Encounter XRay at [address] [place] [address] Social History Tobacco Use Types Packs/Day Years Used Date Never Smoker Sex Assigned at Date Recorded Not on file documented as of this encounter Medications at Time of Discharge Medication Sig Dispensed Refills Start Date End Date traMADol (ULTRAM) 50 mg Take 50 mg by 0 05/28/2011 tablet mouth as needed. acetaminophen (TYLENOL) 325 Take by mouth 0 05/28/2011 mg tablet every 6 hours as needed. naproxen (NAPROSYN) 375 mg Take 375 mg by 0 05/28/2011 tablet mouth 2 times daily (with meals). cyclobenzaprine (FLEXERIL) Take 10 mg by 0 04/30/2011 10 mg tablet mouth 2 times daily as needed. documented as of this encounter Plan of Treatment Not on filedocumented as of this encounter Visit Diagnoses Not on filedocumented in this encounter Care Teams Head Refrigeration Engineer Relationship Specialty Start Date End Date Jenaro Pena MD PCP - General 03/16/11 01/09/[address] [place] [address] documented as of this encounter
--- OUTSIDE RECORDS SUMMARY | 2021-09-16 08:40 | XMS_ITS | Encounter Summary ---
:1975 Author Organization [facility] [place] [address] Care Team Providers Name Role Phone Lori Adorno ANTHONY Primary Care Provider Reason for Referral Surgical (Routine) - Closed Specialty Diagnoses / Procedures Referred By Contact Refer red To Contact Orthopaedics Diagnoses Displacement of lumbar intervertebral disc without myelopathy [facility] [place] [facility] [address] [place] [address] Phone: Referral ID Status Reason Start Date Expiration Date Visits V isits Requested Authorized [id number] Closed Consult, 04/17/2013 10/14/2013 1 1 Test & Treat Reason for Visit Reason Onset Date Comments Other 04/16/2013 follow up to injecti on Encounter Details Date Type Department Care Team Description 04/16/2013 Telephone Spine Center at [facility] non Akiko Matias, Other (follow up to [facility] RN injection ) [place] [address] Social History Tobacco Use Types Packs/Day Years Used Date Never Smoker Smokeless Tobacco: Never Used Sex Assigned at Date Recorded Not on file documented as of this encounter Miscellaneous Notes Telephone Encounter - Akiko Matias RN - 04/16/2013 3:15 PM EST Pt called in follow up to his injection. He reports he did not get any relief and is interested in seeing a surgeon. He reports his nerve pain has gotten increasingly worse over the last couple of daysand is questioning if he can get an antiinflammatory or something for the pain. Case was discussed with Jenaro Butler PA-C. Call was placed back to the patient to make him aware Mr. Butler is in agreement with him seeing the surgeon. In regards to something for pain, Mr. Butler is recommending Neurontinfor his nerve pain. Mr. Zapata would like to discuss his options with the surgeon prior to startingthe Neurontin. His call was passed to the scheduling staff. documented in this encounter Plan of Treatment Scheduled Referrals Name Type Priority Associated Diagnoses Order S chedule Referral to Spine Outpatient Referral Routine Displacement of lumbar Ordered: Center intervertebral disc 04/17/19 14 without myelopathy documented as of this encounter Visit Diagnoses Diagnosis Displacement of lumbar intervertebral di sc without myelopathy - Primary documented in this encounter Care Teams [id number] Operator Relationship Specialty Start Date End Date Lori Adorno APRN PCP - General 01/10/13 02/18/[address] [place] [address] documented as of this encounter
--- OUTSIDE RECORDS SUMMARY | 2021-09-16 08:40 | XMS_ITS | Encounter Summary ---
:1975 [place] [address] Care Team Providers Name Role Phone Lori Adorno APRN Primary Care Provider Encounter Details Date Type Department Care Team Description 05/02/2013 Anesthesia Event Main Operating Room Russell Benjamin MD [facility] [place] [address] [facility] Miguel Garcia MD [facility] DR [place]ESTHESIOLOGY [place] [address] [place] [phone] Anesthesia Record Procedure Summary Procedure Name Responsible Anesthesia Start Anesthesia Stop Time Anesthesiologist Time LAMINOTOMY, Russell Buitrago MD 05/02/13 0725 05/02/13 09 28 DECOMPRESSION, FORAMINOTOMY, LUMBAR (WRVU 13.18) (N/A Spine Lumbar) Events Date Time Event Comment 05/02/2013 0724 0725 AN Verify 0725 Start 0730 An Start Data 0731 An Induction 0736 An Intubation 0752 Anesthesia Ready 0758 Procedure Start 0904 Procedure Stop 0920 Extubation/LMA Out 0920 an stop data 0928 Stop Name Total Midazolam 2 mg fentaNYL 250 mcg Propofol 270 mg Rocuronium 80 mg Ondansetron 4 mg Dexamethasone 4 mg Neostigmine 3 mg Glycopyrrolate 0.4 mg ceFAZolin (ANCEF) 2g in dextrose 5% 50 mL 2 g ketorolac (Toradol) (30 mg/mL) injection 30 mg lactated ringers infusion 1,000 mL 0 mL Agents Name O2 Air N2O Sevoflurane (et) Isoflurane (et) Blood No blood administrations on file. Lines, Drains, and Airways Type Details Placement Removal Incision 05/02/13; lumbar 05/02/13 0000 by spine Corina Wagoner RN PIV 05/02/13; 0647; 05/02/13 0647 by Del 05/02/13 12 05 by 05/02/13; 1205 Lance Arizmendi, Jacquelyn Bravo, MELQUIADES (RETIRED) Non-Surgical Mask Ventilation: 05/02/13 0803 by 0920 by Airway Adjunct (2) (Two Radha, And rew hands and OA for MD kerry Salinas); ETT Type: Cuffed, Oral; ETT Size: 7.5 mm; Oral Airway: 100 mm (5) documented in this encounter Social History Tobacco Use Types Packs/Day Years [...] on file documented as of this encounter OR Notes Anesthesia Postprocedure Evaluation - Miguel Garcia - 05/02/2013 9:45 AM EST Patient: Fco Zapata Procedure(s) Performed: Procedure(s): LAMINOTOMY, DECOMPRESSION, FORAMINOTOMY, LUMBAR MODIFIER L4 MODIFIER L5 Actual Anesthetic: general Patient location: PACU Post-op pain: Adequate analgesia Post-op nausea: nausea or vomiting an issue but being treated with medication Last Vitals: Filed Vitals: 05/02/13 0925 BP: 120/71 Pulse: 66 Temp: 36.6 ??C (97.9 ??F) Resp: 16 Post-op cardiovascular and respiratory status: is stable Level of consciousness: awake, alert and oriented Complications: no apparent complications and tolerated the procedure well Fluid Status: normal No pain, some nausea improving with medication, no recall of procedure. Anesthesia Preprocedure Evaluation - Miguel Garcia - 05/01/2013 5:44 PM EST Pre-Anesthesia Evaluation for: Fco Zapata a 37 y.o. male. Procedure(s): LAMINOTOMY, DECOMPRESSION, FORAMINOTOMY, LUMBAR MODIFIER L4 MODIFIER L5 Patient Active Problem List Diagnosis ??? Thoracic or lumbosacral neuritis or radiculitis, unspecified ??? Low back pain ??? Lumbar disc herniation with radiculopathy, Left L5 Past Medical History Diagnosis Date ??? left L5 radiculitis due to displacement of lumbar intervertebral disc 04/28/2011 No past surgical history on file. History Substance Use Topics ??? Smoking status: Never Smoker ??? Smokeless tobacco: Never Used ??? Alcohol Use: Yes Comment: occsional History Drug Use No No Known Allergies Medications: MAR and/or home medications have been reviewed. Physical Exam: There were no vitals filed for this visit. There is no height or weight on file to calculate BMI. Airway Assessment: Mallampati: II TM distance: >3 FB Neck ROM: full Cardiovascular Assessment: Rhythm: regular Rate: normal cardiovascular exam normal Pulmonary Assessment: pulmonary exam normal Dental Assessment: - normal exam Misc Assessment: Anesthesia Plan: ASA 1 general, with a(n) intravenous induction 37 y.o. male with h/o h/o lumbar radiculopathy and previous L5/S1 decompression presents for L4/5 decompression. No documented/reported h/o anesthetic complications. Plan for GA with ETT, 2 PIV; standard ASA monitoring. No interval changes in health, appropriately NPO. Ready for surgery. Region - Other Informed Consent: Anesthetic plan and risks discussed with patient. Use of blood products discussed with patient whom. Plan discussed with attending. Misc. Assessment: documented in this encounter Plan of Treatment Not on filedocumented as of this encounter Visit Diagnoses Not on filedocumented in this encounter Administered Medications Inactive Administered Medications - up to 3 most recent administrations Medication Order MAR Action Action Date Dose Rate Site ceFAZolin (ANCEF) 2g in dextrose 5% Given 05/02/2013 7:44 AM EST 2 g 50 mL 2 g, Intravenous, ONCE, 1 dose, On Tue05/02/13 at 0700, To be administered upon arrival to the OR within one hour prior to incision., Day of Surgery (Day of Procedure), Indication for (Active or Suspected): Prophylaxis dexamethasone (DECADRON) injection Given 05/02/2013 7:31 AM EST 4 mg PRN, Starting on Tue05/02/13 at 0731, Until Tue05/02/13 at 0928, Anesthesia Intra-op, Routine fentaNYL 50mcg/mL injection Given 05/02/2013 9:26 AM EST 25 mcg PRN, Starting on Tue05/02/13 at 0731, Until Tue05/02/13 at 0928, Pain, Anesthesia Intra-op, Routine Given 05/02/2013 9:21 AM EST 50 mcg Given 05/02/2013 8:45 AM EST 50 mcg glycopyrrolate (ROBINUL) injection Given 05/02/2013 8:59 AM EST 0.4 mg PRN, Starting on Tue05/02/13 at 0859, Until Tue05/02/13 at 0928, Anesthesia Intra-op, Routine ketorolac (TORADOL) injection Given 05/02/2013 8:54 AM EST 30 mg PRN, Starting on Tue05/02/13 at 0854, Until Tue05/02/13 at 0928, Pain, Anesthesia Intra-op, Routine lactated ringers infusion 1,000 mL New Bag 05/02/2013 7:26 AM EST mL 1,000 mL, at 100 mL/hr, Intravenous, CONTINUOUS, Starting on Tue05/02/13 at 0700, Until Tue05/02/13 at 0943, Day of Surgery (Day of Procedure) midazolam (PF) (VERSED) 1 mg/mL injectio n Given 05/02/2013 7:25 AM EST 2 mg PRN, Starting on Tue05/02/13 at 0725, Until Tue05/02/13 at 0928, Sleep, Anesthesia Intra-op, Routine neostigmine (PROSTIGMINE) injection Given 05/02/2013 8:59 AM EST 3 mg PRN, Starting on Tue05/02/13 at 0859, Until Tue05/02/13 at 0928, Anesthesia Intra-op, Routine ondansetron (ZOFRAN) injection Given 05/02/2013 7:31 AM EST 4 mg PRN, Starting on Tue05/02/13 at 0731, Until Tue05/02/13 at 0928, Nausea, Anesthesia Intra-op, Routine propofol (DIPRIVAN) 10 mg/mL bolus injection Given 4 8:59 AM EST 10 mg (Anesthesia) PRN, Starting on Tue05/02/13 at 0731, Until Tue05/02/13 at 0928, Anesthesia Intra-op Given 05/02/2013 7:35 AM EST 60 mg Given 05/02/2013 7:31 AM EST 200 mg rocuronium (ZEMURON) injection Given 05/02/2013 8:45 AM EST 5 mg PRN, Starting on Tue05/02/13 at 0755, Until Tue05/02/13 at 09, Anesthesia Intra-op, Routine Given 05/02/2013 8:22 AM EST 5 mg Given 05/02/2013 7:55 AM EST 20 mg documented in this encounter Care Teams Swing Tender Relationship Specialty Start Date End Date Lori Adorno APRN PCP - General 01/10/13 02/18/[address] [place] [address] documented as of this encounter
--- OUTSIDE RECORDS SUMMARY | 2021-09-16 08:40 | XMS_ITS | Encounter Summary ---
:1975 [place] [address] Care Team Providers Name Role Phone Lori Adorno ORDER ENTRY Primary Care Provider Encounter Details Date Type Department Care Team Description 05/02/2013 Hospital Encounter Same Day Program at Sal Rod MD [facility] [address] [id number] [phone] Social History Tobacco Use Types Packs/Day Years [...] Sign Reading Time Taken Comments Blood Pressure 122/67 05/02/2013 12:00 PM EST Pulse 53 05/02/2013 12:00 PM EST Temperature 36.6 ??C (97.9 ??F) 05/02/2013 9:25 AM EST Respiratory Rate 18 05/02/2013 12:00 PM EST Oxygen Saturation 100% 05/02/2013 12:00 PM EST Inhaled Oxygen Concentration - - Weight - - Height - - Body Mass Index - - documented in this encounter Discharge Instructions Discharge InstructionsJacquelyn Burger RN - 05/02/2013 10:13 AM EST Activity: 1. You may perform your daily activities as tolerated but minimize bending at the waist greater than90 degrees, twisting around your waist, or lifting anything heavier than 5-10 lbs (about a full gallon of water.) 2. In general, guide your activity by the thought that if it hurts, don???t do it. 3. In addition, we recommend taking several walks every day after surgery and gradually increasing your distance and duration over the next 2-4 weeks. Diet: 1. Eat your normal diet, with adequate amounts of protein and fiber. 2. The pain medications you are taking can cause constipation, so increase your intake of fluids andfiber while you are taking them. 3. You should also take an neyl-pmz-aiexsvl stool softener, such as Colace or Senna, to facilitate abowel movement. Drivin. You are not allowed to drive if you are still requiring narcotic pain medication to manage your discomfort. 2. In general, you may begin to drive once you are off of your pain medications and you are comfortable. Call the Spine Center or your Primary Care Physician if you have questions or concerns. Medication: 1. You are being discharged on a narcotic pain medication. Common side effects of this medication include drowsiness, nausea, and constipation. You should only take the smallest amount of pain medication that adequately controls your pain. 2. You may take Tylenol (acetaminophen) around the clock as directed on the package insert for the next 10 days to help reduce the amount of narcotic medication you need. Do not exceed 4000mg of acetaminophen in 24 hrs. Ibuprofen or Aleve may also be taken with dosages as directed on package inserts. 3. If you need a renewal of your pain medication, please contact the [facility] Center Prescription Line at [phone]. PRESCRIPTION RENEWAL REQUESTS CAN TAKE UP TO 3 DAYS TO FILL. YOU WILL BE REQUIRED TOPICK UP YOUR NARCOTIC REFILL PRESCRIPTION IN PERSON AT [facility] OR IT CAN BE MAILED TO YOUR PHARMACY. Wound Care/Shower/Bath: 1. For the first 72 hours after surgery, shower with a clear plastic Tegaderm dressing covering yourwound to keep it dry. 2. After 72 hours you may remove the plastic dressing. At this point you may allow water to run overthe wound but do not scrub the surrounding skin. Gently pat dry with a clean, dry towel. 3. At this time you may replace the plastic dressing with clean, dry gauze held in place with tape. Any bandage over the wound should be dry at all times and should be replaced if wet. 4. 4 days after surgery the wound can be left uncovered if there is no continued drainage. (You should continue to cover the wound for as long as there is continued drainage, please see the section below on when to call the Spine Center.) 5. Do not soak the incision underwater (ie lakes, pools, hot tubs, bath tubs, etc) for at least two weeks until the incision has completely healed. 6. After the gauze dressing is removed the paper strips (steristrips) should be kept in place. You have absorbable sutures under your skin that do not need to be removed. They are covered by the steri-strips. The steri-strips may begin to fall off, and you may trim them as they peel back. After 14 days you can remove the remaining steri-strips if they have not fallen off already. PLEASE CALL US AT [phone] TO SPEAK WITH A SPINE CENTER NURSE IF YOU EXPERIENCE THE FOLLOWING: ?? Fevers greater than 101.5 degrees Fahrenheit ?? Chills or night sweats ?? Nausea or vomiting ?? Wound Redness or drainage after 5 days ?? New numbness or tingling in your hands or feet ?? Incontinence of bowel or bladder ?? Any questions or concerns Important Phone Numbers: Clinical issues, nurse questions: [phone] Medication renewals: [phone] Appointments for Je Rod: [phone] Follow Up Appointments: 1. You will have follow-up appointments at [facility] as indicated in the ???Future Appointments and Orders?? section of your discharge summary. If X-rays have been ordered for you prior to this appointmentyou will need to report to the Radiology department, desk 3T, 1 hour prior to your spine center appointment. 2. If you do not have a scheduled follow-up appointment listed at the time of discharge, you will benotified of your scheduled appointment on the next business day. Please call [phone] if you do not hear from us by that time, as your timely follow-up is very important to us. Wound infection may occur at any time, but it is evident more often 4-7 days after surgery. Signs and symptoms may involve one or more of the followin. Temperature elevation of more than 2 degrees or greater than 100.5 degrees F 2. Swelling and redness in or around the incision. 3. Increasing pain or discomfort in or around the incision. 4. Red streaks in the skin near the incision. 5. Pus or other foul drainage from the incision. 6. Foul smell from the incision. 7. Generalized body chills or fever. 8. Severe pain. If you suspect an incisional infection is present, are having problems, or have additional questionsor concerns, please call. POST ANESTHESIA INSTRUCTIONS Go home, rest, use caution on stairs. Change positions slowly. Do not smoke if you are alone. Diet light to regular as tolerated today. If nausea occurs start with clear liquids and progress slowly. No driving, operating machinery, alcoholic beverages and no important decisions for 24 hours. Monitor IV site for signs and symptoms of infection: increasing redness, swelling, foul drainage, ifoccurs contact M.D. Patients who have had endotrachial tubes (this tube, used by anesthesia department, is passed down your throat after you are asleep, to ensure safe air passage during your operation). A sore throat is normal due to the tube. Cold liquids or soothing lozenges will help ease the discomfort. The generalized muscle aches are due to the medication given to you just before the tube is inserted. As the medication wears off, you may develop muscle soreness, which usually goes away in 12-24 hours. documented in this encounter Medications at Time of Discharge Medication Sig Dispensed Refills Start Date End Date oxyCODONE (ROXICODONE) 5 Take 1-2 tablets by 80 tablet 0 05/31/2013 mg immediate release mouth every 4 hours tablet as needed for Pain. ibuprofen (ADVIL;MOTRIN) Take 400 mg by mouth 0 05/04/2013 200 mg tablet every 6 hours as needed. documented as of this encounter Progress Notes Jacquelyn Burger RN - 05/02/2013 11:28 AM EST Family at the bedside visiting. Jacquelyn Burger RN - 05/02/2013 10:11 AM EST Patient verbalizes the nausea has subsided. Patient log-rolled to his left side.Denies numbness or tingling down his left leg. Low back pain remains tolerable at 3/10. documented in this encounter H&P Notes Karl Rod MD - 05/02/2013 6:28 AM EST The patient's history and physical exam have been reviewed and completed. There has been no intervalchange from that of the pre-operative history and physical exam done within the last 30 days. Pt seen and examined, noting conjunctivitis left eye from injury while hiking, seen locally by PCP. Otherwise no changes in health or of left leg pain to dorsum and medial left foot. EHL and ADF 5/5 bilat. LTdecreased left medial foot. consented procedure reviewed, post-op instructions reviewed. Will proceed as consented. Questions answered. Karl Rod MD MS Source Note - Karl Rod MD - 05/01/2013 9:01 PM EST Patient Name: Fco Zapata Patient Age: 37 y.o. Birthdate: 1975 Admit date: (Not on file) Attending Physician: Karl Rod MD Please see H&P note for visit documentation. Karl Rod MD - 05/01/2013 9:01 PM EST Patient Name: Fco Zapata Patient Age: 37 y.o. Birthdate: 1975 Admit date: (Not on file) Attending Physician: Karl Rod MD Please see H&P note for visit documentation. documented in this encounter Miscellaneous Notes Miscellaneous - Provider, Scanning - 05/02/2013 5:19 PM EST Miscellaneous - Provider, Scanning - 05/02/2013 11:00 AM EST Op Note - Sushil Briggs - 05/02/2013 9:46 AM EST [facility] Operative Note Patient Name: Fco Zapata : [id number] MR#: [id number] Case Date: 05/02/2013 Surgeon: Surgeon(s) and Role: * Karl Rod MD - Primary * Sushil Briggs MD - Resident-Junior Brand Manager Preoperative diagnosis: disc herniation left L4-5 Postoperative diagnosis: disc herniation left L4-5 Procedure(s): Disc excision left L4-5. Anesthesia: General Findings: extruded but contained disc herniation deep to shoulder of left L5 root and medial to L5 pedicle, fully excised leaving the left L5 root fully decompressed and mobile at closure. No CSF. Complications: none Fluids: 650 cc Estimated Blood Loss: 25 cc Drains: none (Please see the Surgical Encounter Summary for any Implant and Specimen details pertinent to this patient.) INDICATIONS FOR PROCEDURE: This is a 37 y.o.-year-old male with symptomatic radiculopathy confirmed by imaging studies that hasfailed non-operative management. After a discussion regarding the risks and benefits of surgical diskectomy they wished to pursue operative treatment. DESCRIPTION OF PROCEDURE: The patient was correctly identified in the same day holding area, the operative site was marked andconsent was confirmed by the team. The pre-operative checklist was completed. The patient was wheeled to the operating room where a general anesthetic was administered while supine on the stretcher. The patient was then transitioned to the prone position on the Serge table making sure all bony prominences were well padded. Preoperative antibiotics were given. A time- out was performed to confirm patient identity, planned surgery, and site according to the [facility] [place] Protocol. The back was then prepped using chlorhexidine, alcohol and duraprep then draped in the usual sterilefashion after the duraprep had dried. Using the iliac wing to help define the patients anatomy an incision was marked on the skin with a marking pen. 17 cc's of 0.25% Marcaine with epinephrine was injected in the subcutaneous tissues before making an incision approximately 3 cm's in length directly over the proposed disk space. Soft tissue dissection continued with a scalpel followed by Bovie electrocautery to obtain hemostasis down to the level of the fascia. We proceeded with a subperiosteal dissection starting with the tip of the spinous process on the left side, working laterally over the lamina out to the facet. The facet joint was not compromised or debrided. A Shruthi retractor was placed laterally and the undersurface of the proposed L4 lamina was dissected and soft tissue removed using a rongeur and curette. A Tescott was then placed on the undersurface of the lamina and an intraoperative xray confirmed that we were at the L4 level. Following this, a rongeur was used to remove a small portion of the inferior medial L4 lamina and superior portion of the L5 lamina. A Kerrison was then used to continue to remove bone in a piecemeal fashion to complete the laminotomy, while preserving the pars. The ligamentum flavum was identified and carefully removed. The dura was completely exposed to the level of the L5 pedicle and exiting L5 nerve root. The dura was gently retracted medially and the herniated disk material was palpated. A scalpel was used to make an incision in the exposed annulus and immediately disk material extruded from the annulotomy. A pituitary was used to remove the herniated disk fragments. All exposed disk materialwas removed and adequately decompressed without any residual compression upon the exiting L5 nerve. Epidural bleeding was controlled with gelfoam soaked in thrombin and neuropatties. The wound was then copiously irrigated and any remaingin bleeding was controlled using Bovie electrocautery. A Gelfoam was placed over the dura at the laminotomy site. 0 Vicryl sutures were used to reapproximate the fascial layer in an interrupted fashion. After the fascia was closed, the wound was irrigated again and the deep layers were approximated with 0 vicryl. The superficial wound was closed using 2-0 Vicryl sutures in a simple interrupted buried fashion followed by a running 3-0 Vicryl. 20 cc's of 0.25% Marcaine with epinephrine was then injected to assist with hemostasis and post-operativepain control. Mastisol and Steri-Strips were applied to the wound which was then dressed with sterile 4x4s and a Tegaderm. A post-operative sign out was held. The patient was then transferred back to the stretcher and extubated without difficulty. On the stretcher he was then taken back to the same recovery area in stable condition. There were no obvious intraoperative complications at the end of thecase and . All needle, sponge and instrument counts were correct at the end of the procedure. Dr. Rod was present, scrubbed and supervised all integral portions of the procedure. OR Attestation - Karl Rod MD - 05/02/2013 9:11 AM EST Attestation: Case Date: 05/02/2013 I was present and I participated during the entire procedure operating with Dr. Briggs. KARL ROD MD 05/02/2013 Brief Op Note - Karl Rod MD - 05/02/2013 9:09 AM EST Brief Operative Note Patient Name: Fco Zapata : [id number] MR#: [id number] Case Date: 05/02/2013 Surgeon: Surgeon(s) and Role: * Karl Rod MD - Primary * Sushil Briggs MD - Resident-Junior Brand Manager Preoperative diagnosis: disc herniation left L4-5 Postoperative diagnosis: disc herniation left L4-5 Procedure(s): Disc excision left L4-5. 22578 Anesthesia: General Findings: extruded but contained disc herniation deep to shoulder of left L5 root and medial to L5 pedicle, fully excised leaving the left L5 root fully decompressed and mobile at closure. No CSF. Complications: none Fluids: 650 cc Estimated Blood Loss: 25 cc Drains: none Disposition: awakened from anesthesia, extubated and taken to the recovery room in a stable condition. documented in this encounter Plan of Treatment Not on filedocumented as of this encounter Procedures Procedure Name Priority Date/Time Associated Diagnosis Comme nts XR LUMBAR SPINE 1 Routine 05/02/2013 8:12 AM Resu lts for this VIEW EST procedure are i n the results section. MODIFIER L5 05/02/2013 7:19 AM disc herniation left EST L4-5 MODIFIER L4 05/02/2013 7:19 AM disc herniation left EST L4-5 LAMINOTOMY, 05/02/2013 7:19 AM disc herniation left DECOMPRESSION, EST L4-5 FORAMINOTOMY, LUMBAR (WRVU 13.18) documented in this encounter Results XR lumbar spine 1 view (05/02/2013 8:12 AM EST) Anatomical Region Laterality Modality L-spine N/A Radiographic Imaging Specimen (Source) Anatomical Collection Method Collection Time Re ceived Time Location / / Volume Laterality 05/02/2013 8:12 AM EST Narrative 05/02/2013 9:28 AM EST Examination LUMBAR SPINE 1 VIEW/XPORT Clinical History intraoperative level confirmation Comparison MR of the lumbar spine from 28 March 2 014. Technique Cross-table lateral radiographs of the l umbar spine performed intraoperatively. Findings Normal vertebral body height and alignme nt in the lateral projection. ??Metallic surgical device is present with the tip projecting over the dorsal aspect of the L5 superior articulating process. Impression 1. ??Surgical device tip projecting over the dorsal aspect of the L5 superior articulating process. Film and interpretation reviewed by the attending Procedure Note Gricel Kendall MD - 05/02/2013Formatt ing of this note might be different from the original. Examination LUMBAR SPINE 1 VIEW/XPORT Clinical History intraoperative level confirmation Comparison MR of the lumbar spine from 28 March 2 014. Technique Cross-table lateral radiographs of the l umbar spine performed intraoperatively. Findings Normal vertebral body height and alignme nt in the lateral projection. Metallic surgical device is present with the tip projecting over the dorsal aspect of the L5 superior articulating process. Impression 1. Surgical device tip projecting over t he dorsal aspect of the L5 superior articulating process. Film and interpretation reviewed by the attending Karl Rod MD IMG DX ORDERABLES documented in this encounter Visit Diagnoses Not on filedocumented in this encounter Administered Medications Inactive Administered Medications - up to 3 most recent administrations Medication Order MAR Action Action Date Dose Rate Site acetaminophen (TYLENOL) tablet Given 05/02/2013 11:01 AM EST 1,0 00 mg 1,000 mg 1,000 mg, Oral, EVERY 8 HOURS SCHEDULED, First dose on Tue05/02/13 at 0945, Until Discontinued, Maximum total acetaminophen dose 4 grams per 24 hours., Recovery (Recovery-Hospital Unit), Routine ketorolac (TORADOL) injection 15 mg Given 05/02/2013 9:45 AM EST 15 mg 15 mg, Intravenous, ONCE, 1 dose, On Tue05/02/13 at 0945, Routine lactated ringers infusion 1,000 New Bag 05/02/2013 9:45 AM EST 1,000 mLs 100 mL/hr mL 1,000 mL, at 100 mL/hr, Intravenous, CONTINUOUS, Starting on Tue05/02/13 at 0945, Until Tue05/02/13 at 1235, PACU Recovery ondansetron (ZOFRAN) injection 4 mg Given 05/02/2013 9:41 AM EST 4 mg 4 mg, Intravenous, EVERY 30 MIN PRN, Starting on Tue05/02/13 at 0928, Until Tue05/02/13 at 1235, Nausea, May repeat 4 mg once in 30 minutes. Consider prochlorperazine if ineffective., PACU Recovery oxyCODONE (ROXICODONE) immediate release Given 05/02/2013 11:01 AM EST 5 mg tablet 5 mg 5 mg, Oral, EVERY 4 HOURS PRN, Starting on Tue05/02/13 at 0928, Until Tue05/02/13 at 1235, Pain, mild pain, PACU Recovery, Routine documented in this encounter Active and Recently Administered Medications Times are shown in EST. Scheduled Medication Order 04/30/2013 05/01/2013 05/02/2013 acetaminophen (TYLENOL) tablet 1,000 mg (CANCELED) 0945 (Due)1101 (Given - Provider: Jacquelyn Burger RN) 1,000 mg, Oral, EVERY 8 HOURS SCHEDULED, First dose on Tue05/02/13 at 0945, Until Discontinued, Maximum total acetaminophen dose 4 grams per 24 hours., Recovery (Recovery-Hospital Unit), Routine ceFAZolin (ANCEF) 2g in dextrose 5% 50 mL (COMPLETED) 0744 (Given - Provider: Miguel Garcia) 2 g, Intravenous, ONCE, 1 dose, 05/02 at 0700, To be administered upon arrival to the OR within one hour prior to incision., Day of Surgery (Day of Procedure), Indication for (Active or Suspected): Prophylaxis ketorolac (TORADOL) injection 15 mg (COMPLETED) 0945 (Given - Provider: Jacquelyn Burger RN) 15 mg, Intravenous, ONCE, 1 dose, On Tue05/02/13 at 0945, Routin e Continuous Medication Order 04/30/2013 05/01/2013 05/02/2013 lactated ringers infusion 1,000 mL (CANCELED) 07 (New Bag - Provider: Miguel Garcia)0758 (Anesthesia Volume Adjustment - Provider: Miguel Garcia)0855 (Anesthesia Volume Adjustment - Provider: Miguel Garcia) 1,000 mL, at 100 mL/hr, Intravenous, CON TINUOUS, Starting Tue05/02/13 at 0700, Until Tue05/02/13 at 0943, Day of Surgery (Day of Procedure) lactated ringers infusion 1,000 mL (CANCELED) 0945 (New Bag - Provider: Jacquelyn Burger RN) 1,000 mL, at 100 mL/hr, Intravenous, CON TINUOUS, Starting Tue05/02/13 at 0945, Until Tue05/02/13 at 1235, PACU Recovery PRN Medication Order 04/30/2013 05/01/2013 05/02/2013 BUpivacaine-EPINEPHrine 0.25 %-1:200,000 injection (CANCELED) 0816 (Given - Provider: Sushil Briggs - Comment: Injected prior to incision.)0916 (Given - Provider: Sushil Briggs) ONCE PRN, Starting Tue05/02/13 at 0816, Until Tue05/02/13 at 1235, Intra- Operative (Intra-Procedure), Routine gelatin adsorbable 100 (GELFOAM) sponge (CANCELED) 0816 (Given - Provider: Karl Rod MD) ONCE PRN, Starting Tue05/02/13 at 0816, Until Tue05/02/13 at 1235, Intra- Operative (Intra-Procedure), Routine ondansetron (ZOFRAN) injection 4 mg (CANCELED) 0941 (Given - Provider: Jacquelyn Burger, RN) 4 mg, Intravenous, EVERY 30 MIN PRN, Sta rting Tue05/02/13 at 0928, Until Tue05/02/13 at 1235, Nausea, May repeat 4 mg once in 30 minutes. Consider prochlorperazine if ineffective., PACU Recovery, Routine oxyCODONE (ROXICODONE) immediate release tablet 5 mg (CANCELED) 1101 (Given - Provider: Jacquelyn Burger, RN) 5 mg, Oral, EVERY 4 HOURS PRN, Starting Tue05/02/13 at 0928, Until Tue05/02/13 at 1235, Pain, mild pain, PACU Recovery, Routine thrombin (Bovine) (THROMBINAR) kit (CANCELED) 0816 (Given - Provider: Karl Rod MD) ONCE PRN, Starting Tue05/02/13 at 0816, For 1 dose, Intra-Operative (Intra-Procedure) documented in this encounter Care Teams Ivory Carver Relationship Specialty Start Date End Date Lori Adorno APRN PCP - General 01/10/13 02/18/[address] [place] [address] documented as of this encounter
--- OUTSIDE RECORDS SUMMARY | 2021-09-16 08:40 | XMS_ITS | Encounter Summary ---
:1975 Author Organization [facility] [place] [address] Care Team Providers Name Role Phone Lori Adorno ANTHONY Primary Care Provider Reason for Visit Reason Comments Low Back Pain right side Encounter Details Date Type Department Care Team Description 02/18/2014 Office Visit [facility] at Edith Tolentino APRN radiculitis [facility] [address] [place] [facility] [address] [place] [address] [phone] Social History Tobacco Use Types Packs/Day Years [...] Pressure 120/68 02/18/2014 2:31 PM EST Pulse - - Temperature - - Respiratory Rate - - Oxygen Saturation - - Inhaled Oxygen Concentration - - Weight 93 kg (205 lb) 02/18/2014 2:31 PM EST Height 172.7 cm (5' 8) 02/18/2014 2:31 PM EST Body Mass Index 31.17 02/18/2014 2:31 PM EST documented in this encounter Progress Notes Edith Tolentino APRN - 02/18/2014 3:01 PM EST CHIEF COMPLAINT: Right low back pain radiating into bilateral buttocks and right posterior lower extremity. HISTORY OF PRESENT ILLNESS: Fco Zapata is a 38 y.o. male seen in the Spine Center today in consultation for Shanell Ritter MD. He presents with a chief complaint of right low back pain radiating into bilateral buttocks and right posterior lower extremity, which has been present about 1 week. He had a left L4-[address] Rod in April 2013. He had excellent improvement of his pain following surgery and had no back pain until November 2013. He developed increased right sided back pain after bending over about 1 week ago. He developed, nerve pain, radiating into his left medial thigh and tingling in his left foot the next day that quickly resolved. He was confined to bed for several days after developing increased back pain. About 3 days after his right low back pain increased, he developed pain radiating into bilateral buttocks and right posterior lower extremity to the calf. He denies weakness or tingling in his legs. He notes his pain levels/symptoms have gotten, much better, over the last 3-4 days. Treatments to date have included: Ibuprofen-helpful. He was prescribed a muscle relaxant and Vicodinbut has not taken these much due to side effect of drowsiness. REVIEW OF SYSTEMS: negative for any GI or symptoms, fevers, night sweats, chills, weight loss, saddle anesthesia or loss of bowel or bladder control. He denies myelopathic symptoms such as gait disturbance, gait imbalance, or difficulty with fine motor control. PAST MEDICAL HISTORY: Benign. PAST SURGICAL HISTORY: Left L4-[address] Rod April 2013 and right L5-S1 discectomy prior to that with a different surgeon. FAMILY HISTORY: Significant for lung cancer. SOCIAL HISTORY: He does not smoke and drinks 1 alcoholic drink several times a week. He has not beenable to work due to increased pain over the past week. 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 MEDICATIONS & ALLERGIES: reviewed with the patient and are in eD-H. PHYSICAL EXAMINATION: Height: 5'8. Weight: 205 lbs. BMI: 31.2. This is an overweight middle aged male in no acute distress. He ambulates with a steady gait. He is able to walk on his heels and toes without weakness. He is able to perform tandem heel-toe walk without ataxia. He stands with a list to the right. He has a well healed lumbar vertical incision scar. His lumbar spine is tender to palpation. His right sciatic notch is tender to palpation. Trunk flexion is 40 degrees and guarded. Trunk extension is 10 degrees and aggravates pain in right posterior leg. Straight leg raise and cross straight leg raise are negative bilaterally. Strength is 5/5 in all lower extremity muscles groups and bilateral EHLs. Touch sensation is normal and symmetrical in bilaterallower extremities. Deep tendon reflexes are 2/4 at the knees bilaterally, trace at the right ankle and 1/4 at the left ankle. There is no clonus. Babinski is with down-going toes bilaterally. Preet's reflex is absent bilaterally. Internal/External hip rotation is full and pain free bilaterally in sitting position. There is no calf tenderness bilaterally. IMAGING: No recent spinal imaging since discectomy surgery in April 2013. ASSESSMENT: Right S1 radiculitis. PLAN: I have reviewed with the patient given that his radicular symptoms have only been present for a weekand have already started to improve, there is a good chance they will continue to improve. I offeredhim a referral to meet with one of the Spine Center's physical therapists but he would like to hold off on this for now given improvement in his symptoms and poor results with PT in the past. I have given him a prescription for Toradol 10mg QID for 5 days and advised him not to take other NSAIDs or prednisone with this. He will take Flexeril and Vicodin prescribed by his local provider as needed withthe anti-inflammatory. Follow-Up: He will call in 2 weeks if his leg symptoms persist and we will schedule a Lumbar MRI w/wo contrast with a same day follow up at that time if needed. All questions were answered and the patient is in agreement with the above treatment plan. This was a counseling dominated visit with approximately 25 minutes of this 40 minute encounter spent in face to face counseling, medical decision making, and review of treatment options. Thank you for the opportunity to participate in the care of this patient. Edith Tolentino MS, ANTHONY, PANEL INSTRUMENT REPAIRER-C [facility] documented in this encounter Plan of Treatment Not on filedocumented as of this encounter Visit Diagnoses Diagnosis Right lumbar radiculitis Thoracic or lumbosacral neuritis or radi culitis, unspecified documented in this encounter Care Teams [employer] Relationship Specialty Start Date End Date Lori Adorno APRN PCP - General 01/10/13 02/18/[address] [place] [address] documented as of this encounter
--- OUTSIDE RECORDS SUMMARY | 2021-09-16 08:40 | XMS_ITS | Encounter Summary ---
:1975 [place] [address] Care Team Providers Name Role Phone Lori Adorno APRN Primary Care Provider Encounter Details Date Type Department Care Team Description 03/26/2013 Telephone [facility] [place] [address] Social History Tobacco Use Types Packs/Day Years Used Date Never Smoker Smokeless Tobacco: Never Used Sex Assigned at Date Recorded Not on file documented as of this encounter Miscellaneous Notes Telephone Encounter - David Salcido - 03/26/2013 10:55 AM EST Per patient's request I left a message letting him know of his upcoming MRI on 03/28/13 in 3z at 4:50. I left MRI's telephone number incase he would like to change the date or time, also a number for myself should he have questions. documented in this encounter Plan of Treatment Not on filedocumented as of this encounter Visit Diagnoses Not on filedocumented in this encounter Care Teams Director Of Adult Epilepsy Relationship Specialty Start Date End Date Lori Adorno APRN PCP - General 01/10/13 02/18/14 [address] [place] [address] documented as of this encounter
--- OUTSIDE RECORDS SUMMARY | 2021-09-16 08:40 | XMS_ITS | Encounter Summary ---
:1975 Author Organization [facility] [place] [address] Care Team Providers Name Role Phone Lori Adorno APRN Primary Care Provider Encounter Details Date Type Department Care Team Description 03/28/2013 Hospital Encounter MRI at [facility], DR YVONNE Walsh of lumbar [facility] Benito Arias MD [facility] [place] [address] [place] [id number] Social History Tobacco Use Types Packs/Day Years Used Date Never Smoker Smokeless Tobacco: Never Used Sex Assigned at Date Recorded Not on file documented as of this encounter Medications at Time of Discharge Medication Sig Dispensed Refills Start Date End Date ibuprofen (ADVIL;MOTRIN) Take 400 mg by mouth 0 05/04/2013 200 mg tablet every 6 hours as needed. documented as of this encounter Miscellaneous Notes Miscellaneous - Provider, Scanning - 04/24/2013 11:49 AM EST documented in this encounter Plan of Treatment Not on filedocumented as of this encounter Procedures Procedure Name Priority Date/Time Associated Diagnosis Comme nts MRI LUMBAR SPINE Routine 03/28/2013 5:42 PM Resul ts for this WITHOUT CONTRAST EST procedure a re in the results section. documented in this encounter Results (ABNORMAL) MRI lumbar spine without contrast (03/28/2013 5:42 PM EST) Anatomical Region Laterality Modality L-spine Magnetic Resonance Specimen (Source) Anatomical Collection Method Collection Time Re ceived Time Location / / Volume Laterality 03/28/2013 5:42 PM EST Narrative 03/28/2013 6:22 PM EST Examination MR Lumbar Spine WO Clinical History low back and left leg pain Technique Routine MRI of the lumbar spine noncontr ast. Comparison 04/30/2011. Findings There is evidence of a laminotomy defect on the right at L5-S1. ??There is disc degenerative change with primarily disc desiccation changes and preservation of height at L3-L4 and disc desiccation olga nges and loss of height at L4-L5 and L5-S1. ??Endplate reactive changes are s een at L5-S1 greater than L4-5. Asymmetric endplate reactive changes are seen greater on the right at L4-5. Vertebral bodies are maintained in heigh t. There is some cortical discontinuity associated with the right pars interarti cularis of L5 which may represent a nondisplaced right L5 pars defect. ??No other evidence of pars defects are seen. ?? This could be confirmed with CT if indic ated. There is mild retrolisthesis of L5 on S1. The conus demonstrates normal size shape and signal intensity and terminates appropriately at L1. There is evidence of right-sided caliect asis and pelviectasis without definite ureterectasis identified. ??Question rig ht-sided UPJ obstruction. Unexpected finding. ?? Findings at specific levels: T12-L1, L1- 2, L2-3: Normal. ?? L3-4: Mild annular bulge with superimpos ed central and right paracentral disc protrusion and annular fissure similar a ppearance to prior exam. ?? L4-5: Large central and left paracentral disc extrusion extending caudally with extensive effacement of the ventral thec al sac particularly on the central region and on the left. ??There is narro wing the left lateral recess. Disc extrusion is larger than on prior exam w ith more mass effect on the thecal sac than previously. Mild bilateral foramina l narrowing seen. ?? L5-S1: No disc protrusion or central raymond nosis. Moderate to severe left and moderate right foraminal narrowing. ?? . Impression ? 1. Evidence of right-sided UPJ ob struction. Unexpected finding. ? 2. Interval increase in size of l arge central and left paracentral disc extrusion L4-5 extending caudally. ? 3. Question unilateral pars defec t on the right at L5. Limited CT would help for confirmation ? 4. Stable appearance of the L3 fo r disk degenerative change annular fissure and mild protrusion. ? 5. Foraminal narrowing greatest a t L5-S1. Comment: The following findings are so c ommon in people without low back pain that while we report their presence, the y must be interpreted with caution and in the context of the clinical situation . (Reference-Annettavik et al, Spine 2001) Findings: (prevalence in patients withou t low back pain), Disk degeneration (decreased T2 signal, height loss, bulge ) (91%), Disk T2-signal loss (83%), Disk height loss (56%), Disk bulge (64%) , Disk protrusion (32%), Annular fissure (38%). Resulting Agency Comment Unexpected Finding Procedure Note Jens Rangel MD - 03/28/2013Formatt ing of this note might be different from the original. Examination MR Lumbar Spine WO Clinical History low back and left leg pain Technique Routine MRI of the lumbar spine noncontr ast. Comparison 04/30/2011. Findings There is evidence of a laminotomy defect on the right at L5-S1. There is disc degenerative change with primarily disc desiccation changes and preservation of height at L3-L4 and disc desiccation olga nges and loss of height at L4-L5 and L5-S1. Endplate reactive changes are see n at L5-S1 greater than L4-5. Asymmetric endplate reactive changes are seen greater on the right at L4-5. Vertebral bodies are maintained in heigh t. There is some cortical discontinuity associated with the right pars interarti cularis of L5 which may represent a nondisplaced right L5 pars defect. No ot her evidence of pars defects are seen. This could be confirmed with CT if indic ated. There is mild retrolisthesis of L5 on S1. The conus demonstrates normal size shape and signal intensity and terminates appropriately at L1. There is evidence of right-sided caliect asis and pelviectasis without definite ureterectasis identified. Question right -sided UPJ obstruction. Unexpected finding. Findings at specific levels: T12-L1, L1- 2, L2-3: Normal. L3-4: Mild annular bulge with superimpos ed central and right paracentral disc protrusion and annular fissure similar a ppearance to prior exam. L4-5: Large central and left paracentral disc extrusion extending caudally with extensive effacement of the ventral thec al sac particularly on the central region and on the left. There is narrowi ng the left lateral recess. Disc extrusion is larger than on prior exam w ith more mass effect on the thecal sac than previously. Mild bilateral foramina l narrowing seen. L5-S1: No disc protrusion or central raymond nosis. Moderate to severe left and moderate right foraminal narrowing. . Impression 1. Evidence of right-sided UPJ obstruct ion. Unexpected finding. 2. Interval increase in size of large c entral and left paracentral disc extrusion L4-5 extending caudally. 3. Question unilateral pars defect on t he right at L5. Limited CT would help for confirmation 4. Stable appearance of the L3 for disk degenerative change annular fissure and mild protrusion. 5. Foraminal narrowing greatest at L5-S 1. Comment: The following findings are so c ommon in people without low back pain that while we report their presence, the y must be interpreted with caution and in the context of the clinical situation . (Reference-Annettavik et al, Spine 2001) Findings: (prevalence in patients withou t low back pain), Disk degeneration (decreased T2 signal, height loss, bulge ) (91%), Disk T2-signal loss (83%), Disk height loss (56%), Disk bulge (64%) , Disk protrusion (32%), Annular fissure (38%). 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
--- OUTSIDE RECORDS SUMMARY | 2021-09-16 08:40 | XMS_ITS | Encounter Summary ---
:1975 Author Organization [facility] [place] [address] Care Team Providers Name Role Phone Shanell Ritter MD Primary Care Provider Encounter Details Date Type Department Care Team Description 06/23/2017 Interpretation Only Telma Callahan Gilmar Hidalgo MD [address] [place] [address] [place] [address] [phone] (Wo rk) Social History Tobacco Use Types [...] Priority Date/Time Associated Diagnosis Comme nts XR FLUORO NO RAD Routine 06/23/2017 11:30 AM Resu lts for this <1HR - RADIOLOGY EDT procedure a re in USE the results section. documented in this encounter Results XR Fluoro No Rad <1Hr - Radiology Use (06/23/2017 11:30 AM EDT) Anatomical Region Laterality Modality N/A Radiographic Imaging Specimen (Source) Anatomical Collection Method Collection Time Re ceived Time Location / / Volume Laterality 06/23/2017 11:30 AM EDT Impressions 06/23/2017 2:05 PM EDT C-arm fluoroscopy used for intraoperative guidance. Fluoroscopy time: Two seconds Dose (mGy): One Images demonstrate a thin metallic point er approaching posteriorly at the level of the L4 vertebral body. Subsequent rui ges demonstrate a thin metallic pointers at the level of the L4 and L5 vertebral bodies. L5-S1 vacuum disc phenomenon noted. Narrative 06/23/2017 2:05 PM EDT EXAMINATION: C-ARM (<1HR) CLINICAL HISTORY: REDO BILATERAL L4-5 LA MINECTOMY AND DISCECTOMY - OR ROOM 2, ?? Procedure Note Lazaro Fuentes MD - 06/23/2017Formattin g of this note might be different from the original. EXAMINATION: C-ARM (<1HR) CLINICAL HISTORY: REDO BILATERAL L4-5 LA MINECTOMY AND DISCECTOMY - OR ROOM 2, IMPRESSION C-arm fluoroscopy used for intraoperativ e guidance. Fluoroscopy time: Two seconds Dose (mGy): One Images demonstrate a thin metallic point er approaching posteriorly at the level of the L4 vertebral body. Subsequent rui ges demonstrate a thin metallic pointers at the level of the L4 and L5 vertebral bodies. L5-S1 vacuum disc phenomenon noted. Gilmar Garcia MD IMG FLUORO ORDERABLES documented in this encounter Visit Diagnoses Not on filedocumented in this encounter Care Teams Dispatch Clerk Relationship Specialty Start Date End Date Shanell Ritter MD PCP - General 02/19/[address] [place] [address] documented as of this encounter
--- OUTSIDE RECORDS SUMMARY | 2021-09-16 08:40 | XMS_ITS | Encounter Summary ---
:1975 [place] [address] Care Team Providers Name Role Phone Lori Adorno ANTHONY Primary Care Provider Encounter Details Date Type Department Care Team Description 03/29/2013 Telephone Pain Management [place] [address] Social History Tobacco Use Types Packs/Day Years Used Date Never Smoker Smokeless Tobacco: Never Used Sex Assigned at Date Recorded Not on file documented as of this encounter Miscellaneous Notes Telephone Encounter - Kalpana Novoa LPN - 03/29/2013 3:15 PM EST Fco Zapata :1975 Contact made with patient: I spoke to Mr. Zapata at 3:15 PM regarding his upcoming lumbar epidural steroid injection scheduledon 04/03/13 (date) scheduled at 0815 (time) with Dr. Jose J Garcia. Medication and Allergy reconciliation: 1. Changes were made in the telephone encounter per patient; marked as reviewed, and closed. 2. Patient confirmed no IVP dye allergy. Arrival time: The patient was instructed to arrive at 0745 (30 minutes prior to procedure start time - 60 minutes prior for RF patients with a pacemaker) on 04/03/13 (date of procedure). Dental Aide: The patient was reminded that they need to have a certified driver examiner accompany them to his procedure who will remain onsite. Antibiotics/Skin assessment/Illness symptoms/Pain level assessment : 1. The patient confirmed that he is not taking antibiotics at this time. 2. The patient confirmed that he does not have any rashes, blisters, or skin breakdown on their body. 3. The patient confirmed that he does not have any active infections. 4. The patient confirmed that he does not have any symptoms of illness: fever, chills, cold, flu, nausea, vomiting. 5. The patient confirmed that he isstill experiencing significant pain. (Significant pain is definedas interfering with performing ADL.) Pain and Anti-anxiety Medications: 1. Nerve Block Procedure Patients: Patient was instructed NOT to take their pain medications on the day of the procedure and anti-anxiety medications are part of their daily medication regiment; they can and should continue taking that medication. 2. All Other Procedure Patients: The patient was instructed that if they take daily pain or anti-anxiety medications, they can and should continue taking on the day of the procedure. Does patient have history of any diagnosed bleeding disorders: No Anticoagulants: No Implant: Patient has pacemaker/defibrillator: No Prior to checking in at [employer], please be sure to empty your bladder. Patient confirmed understanding that if they do not follow the above their instructions, their procedure is likely to be cancelled. Kalpana Novoa LPN documented in this encounter Plan of Treatment Not on filedocumented as of this encounter Visit Diagnoses Not on filedocumented in this encounter Care Teams Topographical Engineer Relationship Specialty Start Date End Date Lori Adorno APRN PCP - General 01/10/13 02/18/[address] [place] [address] documented as of this encounter
--- OUTSIDE RECORDS SUMMARY | 2021-09-16 08:40 | XMS_ITS | Encounter Summary ---
:1975 Author Organization [facility] [place] [address] Care Team Providers Name Role Phone Jenaro Pena MD Primary Care Provider Encounter Details Date Type Department Care Team Description 05/13/2011 Orders Only Pain Management at [facility], [facility] [place] [address] [facility] [phone] [facility] [place], [place] [address] (Wo rk) Social History Tobacco Use Types Packs/Day Years Used Date Never Smoker Smokeless Tobacco: Never Used Sex Assigned at Date Recorded Not on file documented as of this encounter Plan of Treatment Not on filedocumented as of this encounter Procedures Procedure Name Priority Date/Time Associated Diagnosis Comme nts FILM LIBRARY Routine 05/13/2011 8:45 AM Results f or this STORAGE ONLY PAIN EST procedure are in CLINIC C ARM the results section. documented in this encounter Results FILM LIBRARY-STORAGE ONLY PAIN CLINIC C-ARM (05/13/2011 8:45 AM EST) Specimen (Source) Anatomical Collection Method Collection Time Re ceived Time Location / / Volume Laterality 05/13/2011 8:45 AM EST Narrative RAD - 08/07/2013 1:47 PM EDT This is a non-reportable exam. Procedure Note Juanjose Matthew - 08/07/2013Formatting of t his note might be different from the original. This is a non-reportable exam. Trace Jacques MD [facility] FILM LIBRARY ORDERABLES Performing Organization Address City/State/ZIP Code Phon e Number [facility] [address] [place] [address] documented in this encounter Visit Diagnoses Not on filedocumented in this encounter Care Teams Tooler Relationship Specialty Start Date End Date Jenaro Pena MD PCP - General 03/16/11 01/09/[address] [place] [address] documented as of this encounter
--- OUTSIDE RECORDS SUMMARY | 2021-09-16 08:40 | XMS_ITS | Encounter Summary ---
:1975 Author Organization [place] [address] Care Team Providers Name Role Phone Jenaro Pena MD Primary Care Provider [phone] Reason for Referral Consultation (Routine) - Closed Specialty Diagnoses / Procedures Referred By Contact Refer red To Contact Pain Management Diagnoses Neuritis/radiculitis due to displacement of lumbar intervertebral disc [facility] [address] [address] [place] [address] Phone: Fax: Referral ID Status Reason Start Date Expiration Date Visits Requ ested Visits Authorized [id number] Closed Other 04/30/2011 10/27/2011 3 3 Reason for Visit Reason Comments Back Pain radiating down left leg Encounter Details Date Type Department Care Team Description 04/30/2011 Office Visit [facility], left L5 radiculitis due [facility] to displacement of [facility] in [address] triplett (Primary Dx) [place], [place] [facility] [address] [place] [address] [phone] Social History Tobacco Use Types Packs/Day Years [...] - - Weight 90.7 kg (200 lb) 04/30/2011 9:31 AM EST Height 172.7 cm (5' 8) 04/30/2011 9:31 AM EST Body Mass Index 30.41 04/30/2011 9:31 AM EST documented in this encounter Progress Notes Jenaro Butler PA - 04/30/2011 10:02 AM EST Subjective: Patient ID: Fco Zapata is a 35 y.o. male. HPI Comments: This patient is a 35-year-old male that presents to the spine center for a followup visit on acute low back pain and left L5 radicular symptoms. At the last visit I ordered an MRI of the lumbar spine to evaluate if he has any disk herniation and we also enrolled him into study to compareoral steroids and epidural steroids. He is here to review the MRI findings. He states he is on day 3of taking the oral steroids and is feeling a little bit better at this time but does still have bothlow back pain and left leg pain. There is not much numbness and tingling at this current time. He rates his pain currently as a 2/10 although his pain can get as high as a 6/10 in the last week. He does not describe any bowel or bladder incontinence but he does still reports some weakness in the left lower extremity. Back Pain Review of Systems Constitutional: Negative. Gastrointestinal: Negative. Genitourinary: Negative. Musculoskeletal: Positive for back pain. Objective: Physical Exam This was a discussion based visit, I did not repeat a physical exam. Ortho Exam Neurologic Exam Assessment and Plan: Imaging: The current MRI of the lumbar spine which was performed today reveals: There is degenerative disk desiccation noted at L3-L4, L4-L5 and L5-S1. There is postsurgical changes at the L5-S1 level but there does not appear to be any new disk herniation at this level. At the L4-L5 level there is a fairly large left paracentral disk extrusion then migrates caudally and narrows the lateral recess impinging the left L5 nerve root. I reviewed the images with the patient. Assessment: Acute left L5 radiculitis from a disk herniation at L4-L5. Plan: I reviewed the images with the patient and we again discussed the treatment options for disk herniations. His preference at this time would be to avoid a 2nd surgery although if he does not improve with nonsurgical options quickly he would want to see a surgeon at that point. I did inform him that what we would plan to do is do an epidural steroid injection and have him followup with me at about 2-3 weeks after the injection. If he is not significantly improved after the injection then we can gladly refer him to one of the spine surgeons. If he is improved, then we'll have to decide what the long-term care should be at that point. After our discussion and answering the patients questions, daron come to an aggreement in the below stated plan: 1) He will continue with his current physical therapy. 2) I have referred the patient to the pain center for a trial of an LESI and I will follow up with them about 3 weeks after the injection. The LESI will be scheduled approximately 1 week after he has completed the oral steroid Dosepak and he is aware that if he is pain-free he should cancel that appointment at that time. Since she is 3 days into a steroid Dosepak and is not currently pain free I would suspect that he will still have some symptoms at that point. documented in this encounter Plan of Treatment Scheduled Referrals Name Type Priority Associated Diagnoses Order S chedule REFERRAL TO PAIN Outpatient Referral Routine left L5 radiculit is due Ordered: CLINIC to displacement of 2 lumbar intervertebral disc documented as of this encounter Visit Diagnoses Diagnosis left L5 radiculitis due to displacement of lumbar intervertebral disc - Primary Displacement of lumbar intervertebral di sc without myelopathy documented in this encounter Care Teams Research Executive Relationship Specialty Start Date End Date Jenaro Pena MD PCP - General 03/16/11 01/09/[address] [place] [address] documented as of this encounter
--- OUTSIDE RECORDS SUMMARY | 2021-09-16 08:40 | XMS_ITS | Encounter Summary ---
:1975 Author Organization [facility] [place] [address] Care Team Providers Name Role Phone Lori Adorno APRN Primary Care Provider Encounter Details Date Type Department Care Team Description 11/08/2013 Office Visit Dermatology at [facility] Tinea c orporis [place] MD (Primary Dx) [address] [facility] DERMATOLOGY [place], [place] [id number] [phone] Social History Tobacco Use Types Packs/Day Years [...] on file documented as of this encounter Progress Notes Tyrell Baker MD - 11/08/2013 2:19 PM EDT Problem: Skin rash. Fco is a 37-year-old gentleman who for some time has had problems with serpiginous ringworm-like rashes on the left dorsal hand, on the nape of his neck, on his legs. He has been treated with betamethasone with no benefit and was given clotrimazole about two or three weeks ago, and this has been helping. He is referred today by Lori Adorno for further evaluation and treatment of this. 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 Physical examination today reveals flattened serpiginous patches with some dyspigmentation present, hypopigmentation on the dorsal hands, on the nape of his neck, and patches on his legs. He has mild tinea pedis of his feet. He has tinea unguium in the left fourth fingernail and in his left fourth toenail. Assessment and Plan: Tinea manus and corpus, probable early two-foot, one-hand disease. a. Recommend that patient continue treating this symptomatically with clotrimazole cream 1%. b. Discussed the option of other treatment, such as Spectazole, if he becomes resistant to this. c. Would stay away from corticosteroids and would stay away from oral antifungals. d. I would be happy to see the patient back p.r.n. for new lesions/concerns. Explained diagnosis and unfortunately the lack of cure for this. COPY: Tucker LeonRLucia documented in this encounter Plan of Treatment Not on filedocumented as of this encounter Visit Diagnoses Diagnosis Tinea corporis - Primary Dermatophytosis of the body documented in this encounter Care Teams Artificial Log Machine Operator Relationship Specialty Start Date End Date Lori Adorno APRN PCP - General 01/10/13 02/18/[address] [place] [address] documented as of this encounter
--- OUTSIDE RECORDS SUMMARY | 2021-09-16 08:40 | XMS_ITS | Encounter Summary ---
:1975 [place] [address] Care Team Providers Name Role Phone Jenaro Pena MD Primary Care Provider [phone] Encounter Details Date Type Department Care Team Description 05/27/2011 Abstract Spine Center at [facility] Jenaro Butler, [facility] [place] [address] [facility] [phone] [place], [place] [address] (Wo rk) Social History Tobacco Use Types Packs/Day Years Used Date Never Smoker Smokeless Tobacco: Never Used Sex Assigned at Date Recorded Not on file documented as of this encounter Plan of Treatment Not on filedocumented as of this encounter Visit Diagnoses Not on filedocumented in this encounter Care Teams Speeder Operator Relationship Specialty Start Date End Date Jenaro Pena MD PCP - General 03/16/11 01/09/13 [address] [place] [address] documented as of this encounter
--- OUTSIDE RECORDS SUMMARY | 2021-09-16 08:40 | XMS_ITS | Encounter Summary ---
:1975 Author Organization [facility] [place] [address] Care Team Providers Name Role Phone Jenaro Pena MD Primary Care Provider [phone] Reason for Visit Reason Onset Date Comments Follow-up 03/31/2011 Encounter Details Date Type Department Care Team Description 03/31/2011 Telephone Spine Center at [facility] Jenaro Butler PA Follow-up [facility] [place] [address] SPINE [facility]ENTER [phone] [place] [id number] (Wo rk) Social History Tobacco Use Types Packs/Day Years Used Date Never Smoker Sex Assigned at Date Recorded Not on file documented as of this encounter Miscellaneous Notes Telephone Encounter - Jenaro Butler PA - 04/06/2011 10:34 AM EST I have attempted to call the patient today to return his phone call. He was not available and I haveleft him a message. I informed him that it is ok to do PT locally, although I usually prefer our therapist, I am not going to make him travel this distance for the PT if he cannot do it. I have also informed him that if he is still dealing with his symptoms, he should have the MRI with gadolinium thatI ordered and follow up with me. At this point the MRI is not scheduled here at [facility], and am not certain if he has scheduled it locally with the intent to bring a copy of the images in with him. I haveinformed him to contact my scheduling assistant corporate secretary to be certain the the MRI and follow up appointment is scheduled. Telephone Encounter - Kimberly Cornelius - 03/31/2011 9:11 AM EST Samm; Fco called this morning. He would like you to call him to discuss his symtoms/PT as he is having itdone closer to home. He would like to cancel Von's appt 04-01 as it is a hardship for him to come, as he doesn't drive. Please call him at [phone] or let me know that you would like to see him. Thank you, Kimberly documented in this encounter Plan of Treatment Not on filedocumented as of this encounter Visit Diagnoses Not on filedocumented in this encounter Care Teams Contract Consultant Relationship Specialty Start Date End Date Jenaro Pena MD PCP - General 03/16/11 01/09/[address] [place] [address] documented as of this encounter
--- OUTSIDE RECORDS SUMMARY | 2021-09-16 08:40 | XMS_ITS | Encounter Summary ---
:1975 Author Organization [facility] [place] [address] Care Team Providers Name Role Phone Lori Adorno NON DESTRUCTIVE TESTING SPECIALIST Primary Care Provider Reason for Visit Reason Onset Date Comments Other 05/04/2013 postop constipation. Encounter Details Date Type Department Care Team Description 05/04/2013 Telephone [facility] ( postop Kian Vasquez RN constipation.) [place] [phone] Social History Tobacco Use Types Packs/Day [...] this encounter Miscellaneous Notes Telephone Encounter - Gavi Merrill RN - 05/04/2013 9:53 AM EST Received call from patient's , she is calling to ask what patient can use for constipation, patient is s/p 05/02/13 Disc excision left L4-5. She also request prescription for 600 mg Ibuprofen. Discussed use of senna product/smooth move tea, she will check with her local pharmacist. Request for Ibuprofen prescription was discussed with Dr. Rod, he authorized prescription. A call was placed back to patient, a message was left requesting return call. Patient was reached and he was informed of the above. Patient reports that he has been able to move his bowels, he has stopped using the Oxycodone. He states that he is doing well, he is using ice, hiswound is fine and he is aware that he can contact [facility] nurse as needed. documented in this encounter Plan of Treatment Not on filedocumented as of this encounter Visit Diagnoses Not on filedocumented in this encounter Care Teams Housing And Residence Life Director Relationship Specialty Start Date End Date Lori Adorno APRN PCP - General 01/10/13 02/18/[address] [place] [address] documented as of this encounter
--- OUTSIDE RECORDS SUMMARY | 2021-09-16 08:40 | XMS_ITS | Encounter Summary ---
:1975 Author Organization [facility] [place] [address] Care Team Providers Name Role Phone Akhil Adorno APRN Primary Care Provider Reason for Visit Reason Comments Back Pain Encounter Details Date Type Department Care Team Description 01/25/2013 Procedure visit Pain Management at Elana Luque MD [address] [place] [id number] Low back pain [facility] [place] Luque [place] [facility] [place] [address] (Primary Dx) [place] [id number] Social History Tobacco Use Types Packs/Day Years Used Date Never Smoker Smokeless Tobacco: Never Used Sex Assigned at Date Recorded Not on file documented as of this encounter Last Filed Vital Signs Vital Sign Reading Time Taken Comments Blood Pressure 112/68 01/25/2013 1:19 PM EST Pulse 58 01/25/2013 1:19 PM EST Temperature - - Respiratory Rate 18 01/25/2013 1:19 PM EST Oxygen Saturation 98% 01/25/2013 1:19 PM EST Inhaled Oxygen Concentration - - Weight 90.7 kg (200 lb) 01/25/2013 1:06 PM EST Height 172.7 cm (5' 8) 01/25/2013 1:06 PM EST Body Mass Index 30.41 01/25/2013 1:06 PM EST documented in this encounter Patient Instructions Patient InstructionsAissatou Stallings, RIAN - 01/25/2013 1:13 PM EST Pain Management Center Discharge Instructions: You were seen by Dr. Bernadette Luque MD and Joseph Adams MD who performed lumbar epidural steroid injection. [x] You may resume your normal activities: tomorrow. You may shower today. DO NOT tub bathe, use whirlpools, hot tubs or pool therapy for 2 days. Remove Band-Aid(s) later today/tomorrow. Do not drive until tomorrow. Use caution walking/climbing stairs as you may be unsteady on your feet. You may use your usual medications, including pain medications, as directed, unless otherwise instructed. You may use an ice pack as needed for the first 24 hours, on for 20 minutes then off for 20 minutes.Do not apply heat today. Attempt to empty your bladder 4-6 hours after your procedure. You received the following medications: Lidocaine, Omnipaque (contrast dye) and Dexamethasone SodiumPhosphate 10 mg. During regular business hours, please phone the Pain Management Center at for appointments or with any questions or if the following or other troubling symptoms develop: 1) Prolonged dizziness or weakness (more than 1 day). 2) Localized swelling, redness or drainage at the injection site(s). 3) Temperature of 101 degrees that lasts for more than 4 hours. After 5 PM or on weekends, call and ask for Pain Clinic provider on-call. If you are unable to reach the Pain Management Center and have a complication, please call your Primary Care Provider or proceed to your local emergency department. Aissatou Stallings LPN Special instructions documented in this encounter Progress Notes Aissatou Stallings LPN - 01/25/2013 1:06 PM EST Pre-Procedure Screening Questions: 1. Status: No 2. 3. Patient states they have a otr owner operator truck driver to transport after procedure? Yes 4. Patient taking antibiotics at present? No 5. NPO per Pain Management Center protocol? No 6. 7. Patient diabetic: No __ borderline (not treated with medications) __ managed with oral medications __ managed with injected medications 8. Patient routinely taking anticoagulants ? No Date stopped Current INR Patient Vital Signs documented in Doc Flowsheets associated with this encounter. Patient Discharge Instructions were reviewed with patient and copy provided to patient. documented in this encounter Procedure Notes Joseph Adams MD - 01/25/2013 12:37 PM ESTAssociated Order(s): EPIDURAL STEROID INJECTION Procedure(s): EPIDURAL STEROID INJECTION Pre-Procedure Diagnose(s): Low back pain Post-Procedure Diagnose(s): Low back pain Lumbar Epidural Steroid Injection with Fluoroscopic Guidance L4-L5 Chief Complaint: Low back and left lower extremity pain. Fco Zapata has been referred to the Pain Management Center for Lumbar Epidural Steroid Injection. Fco Zapata was greeted by the nurse who verified patients name and . Patient was then taken to the fluoroscopy suite. Mr. Zapata was interviewed and the medical record reviewed. There were no medical, pharmacologic, radiographic or other structural contraindications to attempting fluoroscopically guided epidural steroid injection. Risks and expected side effects as well as potential benefit of the procedure were revi ewed with Mr. Zapata, and his voiced concerns were addressed. The printed consent form was signed and witnessed. The risks and benefits were reviewed with the patient including but not limited to postdural puncture, headache, infection, nerve injury, allergic reaction, possible increase in symptoms over the ensuing 24 to 48 hours, paralysis. The patient appeared to understand, questions were answered and the patient agreed to proceed. Standard time-out procedure was performed. TECHNIQUE: After informed written consent was obtained, the patient was placed in the prone position. The Lumbar spine was prepped with chloraprep and draped. Sterile technique was used, vital signs (BP, pulse oximtery) were monitored, time out was done and the Left side was marked with a radioopaque marker, cap, glove, mask were worn. Using fluoroscopic guidance, the L4-L5 interspace was identified. The skin and subcutaneous structures were anesthetized with lidocaine 1% to a total volume of 5 ml. An 18 g tuohy needle was advance tothe epidural space using the loss of resistance technique with air and fluoroscopic guidance. There was no blood or CSF. Lateral view was obtained. Under AP view Omnipaque 240 1 cc's was injected whilevisualized with live fluoroscopy. There was no evidence of intravascular uptake, the epidural space was delineated. The patient received Decadron 10 mg diluted in preservative free normal saline to a total volume of 5 ml after negative aspiration for blood or CSF. Radiographs were archived in the [facility] nt???s chart. OUTCOME:Outcome: The patient tolerated the procedure well and had stable vital signs. Follow up plans and appointments were discussed with Fco W Zapata. The patient was observed in the pain clinic and then discharged after having met discharge criteria to the care of a otr owner operator truck driver. The patient received written instructions as documented in nursing records. COMMENTS: The patient tolerated the procedure well. He will follow up in the Pain Clinic as needed. If he does not receive relief from today's procedure, he should be considered for a left L4-5 transforaminal CELINA. CC: AKHIL ADORNO APRN @[email or web address]@ I was the attending physician supervising the fellow or resident in the above care and I was presentwith the resident for the entire procedure. BERNADETTE LUQUE MD documented in this encounter Plan of Treatment Not on filedocumented as of this encounter Procedures Procedure Name Priority Date/Time Associated Diagnosis Comme nts EPIDURAL STEROID Routine 01/29/2013 2:30 PM Low back pain Resu lts for this INJECTION EST procedure are i n the results section. documented in this encounter Results EPIDURAL STEROID INJECTION (01/29/2013 2:30 PM EST) Narrative Bernadette Luque MD - 01/29/2013 2:30 P M EST Bernadette Luque MD ? 01/29/2013 ??2:30 PM Lumbar Epidural Steroid Injection with F luoroscopic Guidance L4-L5 Chief Complaint: Low back and left lower extremity pain. Fco Zapata has been referred to the Pain Management Center for Lumbar Epidural Steroid Injection. Fco Zapata was greeted by the nurse who verified patients name and . ??Patient was then taken t o the fluoroscopy suite. Mr. Zapata was interviewed and the [facility] record reviewed. ?? There were no medical, pharmacologic, ra diographic or other structural contraindications to attempti ng fluoroscopically guided epidural steroid injection. ??Ris ks and expected side effects as well as potential benefit of the procedure were reviewed with Mr. Zapata, and his voice d concerns were addressed. ??The printed consent form wa s signed and witnessed. The risks and benefits were reviewed wit h the patient including but not limited to post dural puncture, headache, infection, nerve injury, allergic reaction, possibl e increase in symptoms over the ensuing 24 to 48 hours, paralys is. ??The patient appeared to understand, ??questions were answered and the patient agreed to proceed. Standard time-out procedure was performe d. TECHNIQUE: After informed written consen t was obtained, the patient was placed in the prone position . The Lumbar spine was prepped with chloraprep and draped. ??St erile technique was used, vital signs (BP, pulse oximtery) were mo nitored, time out was done and the ??Left ??side was marked wi th a radioopaque marker, ?? cap, glove, mask were worn. Using fluoroscopic guidance, the ??L4-L5 ??interspace was identified. ??The skin and subcutaneous structures were anesthetized with lidocaine 1% to a tota l volume of ??5 ??ml. ?? An 18 g tuohy needle was advance to the epi dural space using the loss of resistance technique with air an d fluoroscopic guidance. ?? There was no blood or CSF. Lateral view was obtained. ??Under AP view Omnipaque 240 ??1 cc's was injected while visualized with live fluoroscopy. ?? There was no eviden ce of intravascular uptake, the epidural space was delineate d. ??The patient received Decadron 10 ?? mg diluted in preservativ e free normal saline to a total volume of 5 ml after negative aspi ration for blood or CSF. ?? Radiographs were archived in the patient ? s chart. OUTCOME:Outcome: The patient tolerated t he procedure well and had stable vital signs. ??Follow up plans an d appointments were discussed with Fco Zapata. The patie nt was observed in the pain clinic and then discharged after sneha palmer met discharge criteria ??to the care of a otr owner operator truck driver. ??Th e patient received written instructions as documented in nursing re cords. ?? COMMENTS: The patient tolerated the proc edure well. He will follow up in the Pain Clinic as needed. If he does not receive relief from today's procedure, he should be considered for a left L4-5 transforaminal CELINA. CC: AKHIL ADORNO, ANTHONY @[email or web address]@ I was the attending physician supervisin g the fellow or resident in the above care and I was present with the resident for the entire procedure. BERNADETTE LUQUE MD Procedure Note Joseph Adams MD - 01/25/2013 12 :37 PM EST Lumbar Epidural Steroid Injection with F luoroscopic Guidance L4-L5 Chief Complaint: Low back and left lower extremity pain. Fco Zapata has been referred to the Pain Management Center for Lumbar Epidural Steroid Injection. Fco Zapata was greeted by the nurse who verified patients name and . Patient was then taken to the fluoroscopy suite. Mr. Zapata was interviewed and the [facility] record reviewed. There were no medical, pharmacologic, radiographic or other structural contraindications to attempting fluoroscopically guided epidural steroid injection. Risks and expected side effec ts as well as potential benefit of the procedure were reviewed with Mr. Zapata, and his voiced concerns were addressed. The printed consent form was signed and witnessed. The risks and benefits were reviewed with th e patient including but not limited to post dural puncture, headache, infection, nerve injury, allergic reaction, possible increase in symptoms over the ensuing 24 to 48 hours, paralysis. The patient appeared t o understand, questions were answered and the patient agreed to proceed. Standard time-out procedure was performe d. TECHNIQUE: After informed written consen t was obtained, the patient was placed in the prone position. The Lumbar spine was prepped with chloraprep and draped. Sterile technique was used, vital signs (BP, pulse oximtery) were monitored, time out was done and th e Left side was marked with a radioopaque marker, cap, glove, mask were worn. Using fluoroscopic guidance, the L4-L5 i nterspace was identified. The skin and subcutaneous structures were anesthetized with lidocaine 1% to a total volume of 5 ml. An 18 g tuohy needle was advance to the epidural space using the loss of resistance techn ique with air and fluoroscopic guidance. There was no blood or CSF. Lateral view was obtained. Under AP view Omnipaque 240 1 cc's was injected while visualized with live fluoroscopy. There was no evidence of in travascular uptake, the epidural space was delineated. The patient received Decadron 10 mg diluted in preservative free normal saline to a total volume of 5 ml after negative aspiration for blood or CSF. Radiographs were archived in the patient? s chart. OUTCOME:Outcome: The patient tolerated t he procedure well and had stable vital signs. Follow up plans and appointments were discussed with Fco Zapata. The patient was observed in the pain clinic and then discharged after having met discharge criteria to t he care of a otr owner operator truck driver. The patient received written instructions as documented in nursing records. COMMENTS: The patient tolerated the proc edure well. He will follow up in the Pain Clinic as needed. If he does not receive relief from today's procedure, he should be considered for a left L4-5 transforaminal CELINA. CC: AKHIL ADORNO APRN @[email or web address]@ I was the attending physician supervisin g the fellow or resident in the above care and I was present with the resident for the entire procedure. BERNADETTE LUQUE MD Bernadette Luque MD NEUROLOGY ORDERABLES documented in this encounter Visit Diagnoses Diagnosis Low back pain - Primary Lumbago documented in this encounter Administered Medications Inactive Administered Medications - up to 3 most recent administrations Medication Order MAR Action Action Date Dose Rate Site dexamethasone sodium (PF) injection Given 01/25/2013 1:00 PM EST 10 mg 10 mg 10 mg, Epidural, ONCE, 1 dose, On Marie 01/25/13 at 1300, Routine iohexol (OMNIPAQUE) injection 1 mL Given 01/25/2013 1:00 PM EST 1 mL 1 mL, Other, ONCE, 1 dose, On Marie 01/25/13 at 1300, 49 ml wasted, Routine documented in this encounter Care Teams Night Warehouse Manager Relationship Specialty Start Date End Date Akhil Adorno APRN PCP - General 01/10/13 02/18/[address] [place] [address] documented as of this encounter
--- OUTSIDE RECORDS SUMMARY | 2021-09-16 08:40 | XMS_ITS | Encounter Summary ---
:1975 Author [place] [address] Care Team Providers Name Role Phone Lori Adorno INSIDE SALES ADVERTISING EXECUTIVE Primary Care Provider Encounter Details Date Type Department Care Team Description 05/02/2013 Surgery Main Operating Room Amita Rod MD LAMINOTOMY, [facility] DECOMPRESSION, [facility] FORAMINOTODUSTIN, [facility] SPINE CENTER ([facility] 13.[address]) [place] [id number] [phone] Social History Tobacco Use Types Packs/Day Years [...] Sign Reading Time Taken Comments Blood Pressure 117/65 05/02/2013 9:40 AM EST Pulse 53 05/02/2013 9:40 AM EST Temperature 36.6 ??C (97.9 ??F) 05/02/2013 9:25 AM EST Respiratory Rate 16 05/02/2013 9:40 AM EST Oxygen Saturation 100% 05/02/2013 9:40 AM EST Inhaled Oxygen Concentration - - [...] them. 3. You should also take an [id number] stool softener, such as Colace or Senna, [...] contact the Spine Center Prescription Line at [phone]. PRESCRIPTION RENEWAL REQUESTS CAN TAKE UP TO 3 DAYS TO FILL. YOU WILL BE REQUIRED TOPICK UP YOUR NARCOTIC REFILL PRESCRIPTION IN PERSON AT [facility] OR IT CAN BE MAILED TO YOUR [...] fallen off already. PLEASE CALL US AT [phone] TO SPEAK WITH A SPINE CENTER NURSE [...] Important Phone Numbers: Clinical issues, nurse questions: [phone] Medication renewals: [phone] Appointments for Je Rod: [phone] Follow Up Appointments: 1. You will have follow-up appointments at [facility] as indicated in the ???Future Appointments and [...] on the next business day. Please call [phone] if you do not hear from us [...] leg. Low back pain remains tolerable at 10. documented in this encounter H&P Notes Karl [...] Briggs - 05/02/2013 9:46 AM EST [facility] Operative Note Patient Name: Fco Zapata : [id number] MR#: [id number] Case Date: 05/02/2013 Surgeon: Surgeon(s) and Role: * Karl Rod MD - Primary * Sushil Briggs MD - Resident-Credit Rating Inspector Preoperative diagnosis: disc herniation left L4-5 Postoperative [...] surgery, and site according to the [facility] [place] Protocol. The back was then prepped using [...] removed using a rongeur and curette. A [place] was then placed on the undersurface of [...] Operative Note Patient Name: Fco Zapata : [id number] MR#: [id number] Case Date: 05/02/2013 Surgeon: Surgeon(s) and Role: * Karl Rod MD - Primary * Sushil Briggs MD - Resident-Credit Rating Inspector Preoperative diagnosis: disc herniation left L4-5 Postoperative diagnosis: disc herniation left L4-5 Procedure(s): Disc excision left L4-5. 36452 Anesthesia: General Findings: extruded but contained disc [...] per 24 hours., Recovery (Recovery-Hospital Unit), Routine BUpivacaine-EPINEPHrine 0.25 Given 05/02/2013 9:16 AM 20 mLs 19- Surgical Site %-1:200,000 injection EST ONCE PRN, Starting on Tue05/02/13 at 0816, Until Tue05/02/13 at 1235, Intra-Operative (Intra-Procedure), Routine Given 05/02/2013 8:16 AM EST 17 mLs gelatin adsorbable 100 Given 05/02/2013 8:16 AM EST 1 each 19- Surgical Site (GELFOAM) sponge ONCE PRN, Starting on Tue05/02/13 at 0816, Until Tue05/02/13 at 1235, Intra-Operative (Intra-Procedure), Routine ketorolac (TORADOL) injection 15 mg Given [...] mild pain, PACU Recovery, Routine thrombin (Bovine) Given 05/02/2013 8:16 AM 20,000 Units 19- Surgical Site (THROMBINAR) kit EST ONCE PRN, Starting on Tue05/02/13 at 0816, Until Tue05/02/13 at 1235, Intra-Operative (Intra-Procedure) documented in this encounter Active and Recently [...] 05/02/2013 lactated ringers infusion 1,000 mL (CANCELED) 0726 (New Bag - Provider: Miguel Garcia)0758 (Anesthesia [...] mg (CANCELED) 0941 (Given - Provider: Jacquelyn Burger RN) 4 mg, Intravenous, EVERY 30 MIN PRN, Sta rting Tue05/02/13 at 0928, Until Tue05/02/13 at 1235, Nausea, May repeat 4 mg once in 30 minutes. Consider prochlorperazine if ineffective., PACU Recovery, Routine oxyCODONE (ROXICODONE) immediate release tablet 5 mg (CANCELED) 1101 (Given - Provider: Jacquelyn Burger RN) 5 mg, Oral, EVERY 4 HOURS PRN, Starting Tue05/02/13 at 0928, Until Tue05/02/13 at 1235, Pain, mild pain, PACU Recovery, Routine thrombin (Bovine) (THROMBINAR) kit (CANCELED) 0816 (Given - Provider: Karl Rod MD) ONCE PRN, Starting Tue05/02/13 at 0816, For 1 dose, Intra-Operative (Intra-Procedure) documented in this encounter Care Teams Custom Seamstress Relationship Specialty Start Date End Date Lori Adorno APRN PCP - General 01/10/13 02/18/14 [address] [place] [address] documented as of this encounter
--- OUTSIDE RECORDS SUMMARY | 2021-09-16 08:40 | XMS_ITS | Encounter Summary ---
:1975 [place] [address] Care Team Providers Name Role Phone Lori Adorno MOBILE BATTERY TECHNICIAN Primary Care Provider Encounter Details Date Type Department Care Team Description 01/24/2013 Telephone Pain Management at [facility] Aissatou Moyer, [place] [address] Social History Tobacco Use Types Packs/Day Years Used Date Never Smoker Smokeless Tobacco: Never Used Sex Assigned at Date Recorded Not on file documented as of this encounter Miscellaneous Notes Telephone Encounter - Aissatou Moyer RN - 01/24/2013 1:37 PM EST Fco Zapata :1975 Message left: I left a message on answering machine Mr. Zapata at 1:37 PM regarding his upcoming lumbar epidural steroid injection with Dr. Krista Luque MD. Message included the followin. Patient instructed to arrive at 1230 (30 minutes prior to procedure start time) on 01/25/13 (dateof procedure) with their dump truck driver [place] [address]. Following instructions left in the message: - Bring Updated list of medications including dosage and reason for taking. - Call the Pain Clinic Nurse at for: ~Procedure instructions. ~If you are taking antibiotics. ~If you have any signs or symptoms of infection, cold or flu. ~If you have any skin breakdown (rashes, cysts, or abscess.) ~If you are taking anticoagulants / blood thiners (Plavix, Pletal, Lovenox, Coumadin, etc). Aissatou Moyer RN documented in this encounter Plan of Treatment Not on filedocumented as of this encounter Visit Diagnoses Not on filedocumented in this encounter Care Teams Rigging Slinger Relationship Specialty Start Date End Date Lori Adorno APRN PCP - General 01/10/13 02/18/[address] [place] [address] documented as of this encounter
--- OUTSIDE RECORDS SUMMARY | 2021-09-16 08:40 | XMS_ITS | Encounter Summary ---
:1975 Author Organization [facility] Address [facility] [place] [id number] Care Team Providers Name Role Phone Jenaro Pena MD Primary Care Provider [phone] Reason for Visit Reason Comments Backache left leg pain Encounter Details Date Type Department Care Team Description 05/13/2011 Procedure visit Pain Management at [facility] spondylosis [facility] (Primary [facility] [address]) [place] [place] [facility] [address] [place] [address] [phone] Social History Tobacco Use Types Packs/Day Years Used Date Never Smoker Smokeless Tobacco: Never Used Sex Assigned at Date Recorded Not on file documented as of this encounter Last Filed Vital Signs Vital Sign Reading Time Taken Comments Blood Pressure 130/80 05/13/2011 9:33 AM EST Pulse 63 05/13/2011 9:33 AM EST Temperature - - Respiratory Rate 16 05/13/2011 9:33 AM EST Oxygen Saturation 99% 05/13/2011 9:33 AM EST Inhaled Oxygen Concentration - - Weight 90.7 kg (200 lb) 05/13/2011 9:23 AM EST Height 172.7 cm (5' 8) 05/13/2011 9:23 AM EST Body Mass Index 30.41 05/13/2011 9:23 AM EST documented in this encounter Patient Instructions Patient InstructionsAissatou Stallings, RIAN - 05/13/2011 9:30 AM EST Pain Management Center Discharge Instructions: You were seen by Dr. Arpit Tse MD who performed transforaminal injection. [x] You may resume your normal [...] your procedure. You received the following medications: Depo-Medrol 80 mg, Lidocaine and Omnipaque (contrast dye). During regular business hours, please phone the [...] encounter Progress Notes Aissatou Stallings LPN - 05/13/2011 9:26 AM EST .Pre-Procedure Screening Questions: 1. Status: No 2. 3. Patient states they have a electric pile driver operator to transport after procedure? Yes 4. Patient [...] patient. documented in this encounter Procedure Notes Cinthia Santana MD - 05/13/2011 9:42 AM ESTAssociated Order(s): TRANSFORAMINAL INJECTION Pre-Procedure Diagnose(s): Lumbosacral spondylosis without myelopathy LUMBAR / SACRAL TRANSFORAMINAL INJECTION Date of Service: 05/13/2011 Patient: Fco Zapata Provider: CINTHIA SANTANA MD Fco Zapata has been referred to the [facility] Management Center for a transforaminal nerve root blockand steroid injection. COMMENTS: Patient presents with left sided leg pain. MRI results reviewed. Mr. Zapata was interviewed and the medical record reviewed. There were no medical, pharmacologic, radiographic or other structural contraindications to attempting fluoroscopically guided transforaminal nerve root block and epidural steroid injection. Risks and expected side effects as well as potential benefit of the procedure were reviewed withMr. Zapata , and his voiced concerns addressed. The printed consent form was signed and witnessed. Standard time-out procedure was performed. Mr. Zapata was placed in the prone position on the fluoroscopy table and automated blood pressure cuff and pulse oximeter applied. Fluoroscopy was utilized to identify the left neural foramen between L4 and L5 . A skin donny was made for the needle insertion site. A Chlorhexadine prep was carried out, and sterile drapes were applied. Local anesthesia was achieved in the skin and subcutaneous tissues. A 22 gauge curved tip spinal needle was then inserted, advanced with fluoroscopic guidance into the neural foramen, confirmed on the lateral view. After negative aspiration, 1 ml of Omnipaque 240 was injected confirming position in A/P and lateral views. This showed a good spread of dye transforaminally into the epidural space. There was no vascular update with contrast injection under continuous fluoroscopy. 60 mg of Depo-Medrol was injected, followed by 0.5 ml of 1% Xylocaine flush for the nerve root block, as well. There was no unusual discomfort expressed by Mr. Zapata . The needle was withdrawn. The patient tolerated the procedure well. A Band-Aid was applied. Mr. Zapata's vital signs were stable throughout the procedure and were as recorded in nursing records. If given, dosages of intravenous drugs for anxiolysis and analgesia were documented in nursing records. Follow up plans and appointments were discussed with Mr. Zapata. Post procedure instruction was given as documented in nursing records and he was discharged in the care of an identified electric pile driver operator. COMMENTS: Patient tolerated the procedure well. There were no complications. I was the attending physician supervising the resident in the above care and I was present with the resident for the entire procedure. ARPIT TSE MD CC: JENARO PENA MD @PCPADD@ documented in this encounter Miscellaneous Notes Miscellaneous - Stephan, Commercial Air[employer] Pilot - 05/19/2011 6:00 PM EST documented in this encounter Plan of Treatment Not on filedocumented as of this encounter Procedures Procedure Name Priority Date/Time Associated Comments Diagnosis TRANSFORAMINAL Routine 05/14/2011 1:45 Lumbosacral Results fo r this INJECTION PM EST spondylosis without procedur e are in myelopathy the results section. documented in this encounter Results TRANSFORAMINAL INJECTION (05/14/2011 1:45 PM EST) Narrative Arpit Tse MD - 05/14/2011 1:45 PM EST LUMBAR / SACRAL TRANSFORAMINAL INJECTION Date of Service: ??05/13/2011 Patient: ??Fco Zapata ?? [id number] Provider: ??CINTHIA SANTANA MD Fco Zapata ??has been referred to [facility] for a transforaminal nerve root block and ster oid injection. ?? COMMENTS: Patient presents with left july ed leg pain. MRI results reviewed. Mr. Zapata was interviewed and the [facility] record reviewed. ??There were no medical, pharmacologic, radiographic or other structural contraindications to attempting fluorosc opically guided transforaminal nerve root block and epidural steroid in jection. ??Risks and expected side effects as well as potential benefit of the procedure were reviewed withMr. Zapata , and his voiced concern s addressed. ??The printed consent form was signed and witnessed. ??Standar d time-out procedure was performed. Mr. Zapata was placed in the prone posi tion on the fluoroscopy table and automated blood pressure cuff and pulse oximeter applied. ??Fluoroscopy was utilized to identify the left neural foramen between L4 and L5 . ??A s kin donny was made for the needle insertion site. ??A Chlorhexadine prep w as carried out, and sterile drapes were applied. ??Local anesthesia was ach ieved in the skin and subcutaneous tissues. ??A 22 gauge curved tip spinal needle was then inserted, advanced with fluoroscopic guidance into the neur al foramen, confirmed on the lateral view. ??After negative aspiratio n, 1 ml of Omnipaque 240 was injected confirming position in A/P and lateral views. ??This showed a good spread of dye transforaminally into the epidural space. ??There was no vascular update with contrast injection under continuous fluoroscopy. 60 mg of Depo-Medrol was injected, followed by 1 ml of 1% Xylocaine flush for the nerve root block, as well. ??There w as no unusual discomfort expressed by Mr. Zapata . ??The needle was withdr awn. The patient tolerated the procedure well. ??A Band-Aid was applied . Mr. Zapata's vital signs were stable th roughout the procedure and were as recorded in nursing records. ??If given, dosages of intravenous drugs for anxiolysis and analgesia were documented in nursing records. Follow up plans and appointments were di scussed with Mr. Zapata. ??Post procedure instruction was given as docum ented in nursing records and he was discharged in the care of an identif ied electric pile driver operator. COMMENTS: Patient tolerated the procedur e well. There were no complications. CC: JENARO PENA MD @PCPADD@ LUMBAR / SACRAL TRANSFORAMINAL INJECTION Date of Service: ??05/13/2011 Patient: ??Fco Zapata ?? [id number] Provider: ??MD Fco RIZO ??has been referred to [facility] for a transforaminal nerve root block and ster oid injection. ?? COMMENTS: Patient presents with left july ed leg pain. MRI results reviewed. Mr. Zapata was interviewed and the [facility] record reviewed. ??There were no medical, pharmacologic, radiographic or other structural contraindications to attempting fluorosc opically guided transforaminal nerve root block and epidural steroid in jection. ??Risks and expected side effects as well as potential benefit of the procedure were reviewed withMr. Zapata , and his voiced concern s addressed. ??The printed consent form was signed and witnessed. ??Standar d time-out procedure was performed. Mr. Zapata was placed in the prone posi tion on the fluoroscopy table and automated blood pressure cuff and pulse oximeter applied. ??Fluoroscopy was utilized to identify the left neural foramen between L4 and L5 . ??A s kin donny was made for the needle insertion site. ??A Chlorhexadine prep w as carried out, and sterile drapes were applied. ??Local anesthesia was ach ieved in the skin and subcutaneous tissues. ??A 22 gauge curved tip spinal needle was then inserted, advanced with fluoroscopic guidance into the neur al foramen, confirmed on the lateral view. ??After negative aspiratio n, 1 ml of Omnipaque 240 was injected confirming position in A/P and lateral views. ??This showed a good spread of dye transforaminally into the epidural space. ??There was no vascular update with contrast injection under continuous fluoroscopy. 60 mg of Depo-Medrol was injected, followed by 0.5 ml of 1% Xylocaine flush for the nerve root block, as well. ??The re was no unusual discomfort expressed by Mr. Zapata . ??The needle was withdrawn. The patient tolerated the procedure well. ??A Band-A id was applied. Mr. Zapata's vital signs were stable th roughout the procedure and were as recorded in nursing records. ??If given, dosages of intravenous drugs for anxiolysis and analgesia were documented in nursing records. Follow up plans and appointments were di scussed with Mr. Zapata. ??Post procedure instruction was given as docum ented in nursing records and he was discharged in the care of an identif ied electric pile driver operator. COMMENTS: Patient tolerated the procedur e well. There were no complications. I was the attending physician supervisin g the resident in the above care and I was present with the resident for the entire procedure. ARPIT TSE MD CC: JENARO PENA MD @PCPADD@ Procedure Note Cinthia Santana MD - 05/13/2011 9:42 AM EST LUMBAR / SACRAL TRANSFORAMINAL INJECTION Date of Service: 05/13/2011 Patient: Fco Zapata Provider: CINTHIA SANTANA MD Fco Zapata has been referred to the [facility] for a transforaminal nerve root block and steroid injection. COMMENTS: Patient presents with left july ed leg pain. MRI results reviewed. Mr. Zapata was interviewed and the [facility] record reviewed. There were no medical, pharmacologic, radiographic or other structural contraindications to attempting fluoroscopically guided transforaminal nerve root block and epidural steroid in jection. Risks and expected side effects as well as potential benefit of the procedure were reviewed withMr. Zapata , and his voiced concerns addressed. The printed consent form was signed and witnessed. Standard time-out procedure was performed. Mr. Zapata was placed in the prone posi tion on the fluoroscopy table and automated blood pressure cuff and pulse oximeter applied. Fluoroscopy was utilized to identify the left neural foramen between L4 and L5 . A ski n donny was made for the needle insertion site. A Chlorhexadine prep was carried out, and sterile drapes were applied. Local anesthesia was achieved in the skin and subcutaneous tissues. A 22 gauge curved tip spinal ne edle was then inserted, advanced with fluoroscopic guidance into the neural foramen, confirmed on the lateral view. After negative aspiration, 1 ml of Omnipaque 240 was injected confirming position in A/P and lateral views. This showed a good spread of dye transforaminally into the epidural space. There was no vascular update with contrast injection under continuous fluoroscopy. 60 mg of Depo-Medrol was injected, followed by 0.5 ml of 1% Xylocaine flush for the nerve root block, as well. There was no unusual discomfort expressed by Mr. Zapata . The needle was withdrawn. The patient tolerated the procedure well. A Band-Aid was applied. Mr. Zapata's vital signs were stable th roughout the procedure and were as recorded in nursing records. If given, dosages of intravenous drugs for anxiolysis and analgesia were documented in nursing records. Follow up plans and appointments were di scussed with Mr. Zapata. Post procedure instruction was given as documented in nursing records and he was discharged in the care of an identified electric pile driver operator. COMMENTS: Patient tolerated the procedur e well. There were no complications. I was the attending physician supervisin g the resident in the above care and I was present with the resident for the entire procedure. ARPIT TSE MD CC: JENARO PENA MD @PCPADD@ Arpit Tse MD PROCEDURE/MINOR SURGICAL ORD ERABLES documented in this encounter Visit Diagnoses Diagnosis Lumbosacral spondylosis without myelopat hy - Primary documented in this encounter Administered Medications Inactive Administered Medications - up to 3 most recent administrations Medication Order MAR Action Action Date Dose Rate Site iohexol (OMNIPAQUE) injection 50 Given 05/13/2011 9:37 AM EST 0. 5 mLs mL 50 mL, Intravenous, ONCE PRN, 1 dose, Starting on Marie 05/13/11 at 0924, Until Marie 05/13/11 at 0937, Per Protocol, Routine documented in this encounter Care Teams Tamale Maker Relationship Specialty Start Date End Date Jenaro Pena MD PCP - General 03/16/11 01/09/[address] [place] [address] documented as of this encounter
--- OUTSIDE RECORDS SUMMARY | 2021-09-16 08:41 | XMS_ITS ---
:1975 Author Organization [facility] Address [address], [place] [id number] Care Team Providers Name Role Phone Abidaziz Hurt Unavailable Unavailable PROBLEMS Type Condition ICD9-CM Code ZRE79-HY Code Onset Condition SNO MED Code Dates Status Problem Ligamentous M23.91 Active 28031749 laxity of right knee Problem Pain of left M25.562 Active 1660265 03 patella Problem Lumbar disc M51.26 Active 16062055 5 herniation ALLERGIES No Known Allergies ENCOUNTERS Encounter Location Date Diagnosis [address] July, Annual phy sical exam [place], [place] [id number] Z00.00 ; tary counseling Z71.3 ; Screening choles terol level Z13.220 ; Screening for diabetes brenton litus Z13.[address] for immunization Z23 [address] Jun, [place], [place] [id number] [address] May, Pain of le ft patella [place], [place] [address] M25.[address] May, Ligamentou s laxity of [place], [place] [id number] right knee M 23.91 and Pain of left patella M25.[address] Dec, Instabilit y of right knee [place], [place] [address] joint M25.[address] July, [place], [place] [id number] [address] Jun, Pre-op betty luation Z01.818 [place], [place] [id number] [facility] [address] [facility] Jun, [place], [place] [id number] [facility] [address] [facility] May, Lumbar dis c herniation [place], [place] [id number] M51.26 [facility] [place] [address] May, 2017 [place] [id number] [facility] [address] [facility] May, [place], [place] [id number] [facility] [address] [facility], May, Lumba [place] disc her[place] [id number] M51.26 [facility] [place] [address] May, [place] [id number] [address] May, Lumbar dis c herniation [place], [place] [address] M51.[address] May, [place] [address] Apr, [place], [place] [id number] [address] Apr, [place] [address] [address] Apr, Lumbar dis c herniation [place], [place] [address] M51.26 IMMUNIZATIONS Vaccine Route Administration Date Status COVID-19 Moderna 56048 Unknown Feb 27, 2021 Administe red COVID-19 Moderna 29612 Unknown July 21, 2020 Administe red COVID-19 Moderna 77591 Unknown June 23, 2020 Administe red TDaP Adult [facility] 33394 IM Intramuscular July 31, 2021 Administe red TDaP Adult [facility] 44525 Unknown Oct 12, 2008 Administer ed INFLUENZA 18 YRS TO 64 YRS Unknown Feb 11, 2014 Admin istered [employer] Qualifiers Date Former Smoker 1993 REASON FOR REFERRAL Reason Hx of disc herniation with n ew lower back pain with readiculopathy. Please eval and treat. Faxed referral please call pt to schedule a ppt 04/29/2017 wa Referral Organization [facility] Referring Provider First Name Rd Referring Provider Last Name Sam Referring Provider Specialty Family Medicine Referring Provider Referring Provider email [email or web address] Referred Provider Dusty Waldron Referred Provider Specialty Physical Therapist Referral Appointment Date 2017-05-11 Reason [facility] NEURO SURG - CO PY OF MRI TO THEM AND HE SHOULD HAND CARRY - EVAL FOR MECHANICAL RADICUKLAR SOURCE OF SX - ?OPERATIVE CA NDIDATE TANYA PLEASE Faxed referral please call pt to rosaline moura appt 06/09/2017 Referral Organization [facility] Referring Provider First Name Abdiaziz Referring Provider Last Name Blu Referring Provider Specialty Family Medicine Referring Provider Referring Provider email [email or web address] Referred Provider [facility] Neurology, , Referred Provider Specialty Neurology Referral Appointment Date 2017-06-15 Reason Eval and treat Referral Organization [facility] Referring Provider First Name Abdiaziz Referring Provider Last Name Blu Referring Provider Specialty Family Medicine Referring Provider Referring Provider email [email or web address] Referred Provider Vane Valdes Referred Provider Specialty Neurological Surgery Reason Please evaluate and treat fo r right knee instability and pain without obvious tra suhas. Faxed Order. Please Call patient to schedule B Faxed office to get notes 01/17/2018 Referral Organization [facility] Referring Provider First Name Gale Referring Provider Last Name Trinidad Referring Provider Specialty Nurse Practitioner Referring Provider Referring Provider email [email or web address] Referred Provider Mj Vazquez Referred Provider Specialty Orthopedic Surgery Reason FAXED TO [facility] 06.16.2021 [place] *URGENT Please call pt on cell phone [phone] c an do any day but Please contact our office within 1-2 days for this urgent referral's scheduled appointment. Referral Organization [facility] Referring Provider First Name Abdiaziz Referring Provider Last Name Blu Referring Provider Specialty Family Medicine Referring Provider Referring Provider email [email or web address] Referred Provider [facility],,Orthopaedics Referred Provider Specialty Orthopedic Surgery FUNCTIONAL STATUS PLAN OF CARE Activity Details Follow Up prn Reason: Referral 2017-05-11, Hx of disc herni ation with new lower back pain with readiculopathy. Please eval and treat. Faxed referral please call pt to schedule appt 04/29/2017 Dusty eng Referral 2017-06-15, [facility] KIRT RO SURG - COPY OF MRI TO THEM AND HE SHOULD HAND CARRY - EVAL FOR MECHAN ICAL RADICUKLAR SOURCE OF SX - ?OPERATIVE CANDIDATE TANYA PLEASE Faxed referral please call pt to schedule appt 06/09/2017, , [facility] Lily urology Referral Eval and treat, Vane Aguayo Ma gnadottir Referral Please evaluate and treat fo r right knee instability and pain without obvious trauma. Faxed Order. Please Call patient to schedule 12/15 MJB Faxed office to get notes 1 03/19/2017 Mj TAYLOR [facility] Referral FAXED TO [facility] 06.16.2021 [place] *URGENT Please call pt on cell phone [phone] can do any day but Please contact our office within 1-2 days for this urg ent referral's scheduled appointment., Orthopaedics [facility], VITAL SIGNS Temperature 97.1 degrees Fahrenheit 2021-07-31 Heart Rate 55 BPM 2021-07-31 Respiratory Rate 18 /min 2021-07-31 Oximetry 98 % 2021-07-31 Height 68 in 2021-07-31 Weight 201 lbs 2021-07-31 BMI 30.56 kg/m2 2021-07-31 Blood pressure systolic 120 mmHg 2021-06-03 Blood pressure diastolic 70 mmHg 2021-06-03 MEDICATIONS Unknown Medications PROCEDURES Procedure Date Ordered Result Body Site TDAP VACCINE 7 and Up IM July 31, 2021 IMMUNIZATION ADMIN July 31, 2021 VENIPUNCTURE IH July 31, 2021 INJECT TRIGGER POINT, 1 OR 2 June 03, 2021 RESULTS Name Result Date Reference Range [facility] 2021-07-31 UREA NITROGEN (BUN) 20 7-25 BUN/CREATININE RATIO NOT APPLICABLE 6-22 CALCIUM 9.4 8.6-10.3 CARBON DIOXIDE 27 20-32 CHLORIDE 104 98-110 CREATININE 0.94 0.60-1.35 eGFR 112 > OR = 60 eGFR NON-AFR. SOMALI 97 > OR = 60 GLUCOSE 102 65-99 POTASSIUM 4.1 3.5-5.3 SODIUM 139 135-146 LIPID PANEL 2021-07-31 CHOLESTEROL, TOTAL 165 <200 CHOLESTEROL, TOTAL 165 <200 HDL CHOLESTEROL 70 > OR = 40 LDL-CHOLESTEROL 79 NON HDL CHOLESTEROL 95 <130 CHOL/HDLC RATIO 2.4 <5.0 TRIGLYCERIDES 82 <150 MRI Knee Right Result: Xray Knee Left 2021-05-29 Results: [facility] 2017-06-17 UREA NITROGEN (BUN) 16 7-25 BUN/CREATININE RATIO NOT APPLICABLE 6-22 CALCIUM 9.6 8.6-10.3 CARBON DIOXIDE 29 20-31 CHLORIDE 104 98-110 CREATININE 0.77 0.60-1.35 eGFR 130 > OR = 60 eGFR NON-AFR. SOMALI 112 > OR = 60 GLUCOSE 88 65-99 POTASSIUM 4.6 3.5-5.3 SODIUM 142 135-146 CBC WITH DIFF 2017-06-17 ABSOLUTE BASOPHILS 35 0-200 ABSOLUTE LYMPHOCYTES [phone] BASOPHILS 0.9 ABSOLUTE EOSINOPHILS 98 15-500 EOSINOPHILS 2.5 HEMATOCRIT 44.4 38.5-50.0 HEMOGLOBIN 15.1 13.2-17.1 LYMPHOCYTES 26.6 MCH 30.3 27.0-33.0 MCHC 34.0 32.0-36.0 MCV 89.0 80.0-100.0 ABSOLUTE MONOCYTES 445 200-950 MONOCYTES 11.4 MPV 8.0 7.5-12.5 NEUTROPHILS 58.6 ABSOLUTE NEUTROPHILS 2285 [phone] PLATELET COUNT 218 140-400 RED BLOOD CELL COUNT 4.99 4.20-5.80 RDW 13.4 11.0-15.0 WHITE BLOOD CELL COUNT 3.9 3.8-10.8 Xray Spine Lumbosacral Results: MRI Lumbosacral Spines Results: [facility] 2013-05-01 AGAP CA EGFRAA EGFRNAA ANION GAP BUN/CRE2 BUN/CREAT RATIO CALCIUM CHLORIDE CREATININE GFR GFR GLUCOSE POTASSIUM SODIUM COMMENT ANION GP BUN 15 BUN/CREATININE RATIO CALCIUM 9.7 CHLORIDE 101 CARBON DIOXIDE 32.6 GFR GLUCOSE 93 SODIUM 140 GLUCOSE POTASSIUM 4.6 CREATININE 1.1 eGFR NON- >60 eGFR LIPID PANEL 2011-03-18 LDL (CALCULATED) CHOLESTEROL 177 TRIGLYCERIDES 74 LDL 104 HDL 54 RISK CONCEPCION NON-HDL CHOLESTEROL CHOLESTEROL CHOLESTEROL RISK TRIGLYCERIDES HDL LDL VLDL CHOLESTEROL CALCULATED REASON FOR VISIT Insurance Providers [facility] Health Member Patient Patient Patient Patient Patient Subscriber Subscriber Subscriber Group Insurance Plan Plan Plan Plan ID Relationship Address Phone Name Date of ID Name Date of No Type Insurance Insurance Insurance Coverage to Subscriber Address Phone Name Dates [place] [phone] [place] self [place]co [id number] [address] MEDICAL (GENERAL) HISTORY Type Description Date Medical History degenerative disc disease Medical History tinea raúl Baker Medical History tinea katt Baker Medical History lumbar disc herniation with radiculopath y Medical History right ureteropelvic junction obstruction seen on MRI 03/2013 Medical History former smoker 03/17 ppd x 2 yrs quit 1993 Surgical History L5-S1 Right lumbar disc excision 2006 Surgical History L4-L5 Left laminotomy [facility] Surgical History partial discectomy 06/2017 Hospitalization History None
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
== END 2021-09-16 10:04 | disposition home or self-care (01) ==
PROVIDERS: Emergency Provider Physician Assistant; PCP Family Medicine
DX: S20.212A Contusion of left front wall of thorax, initial encounter (principal); V19.9XXA Pedal cyclist (driver) (passenger) injured in unspecified traffic accident, initial encounter
CPT/HCPCS: 99283; 71046; 71100

== ENCOUNTER 2021-09-23 13:58 | Outpatient (CLI) | payer MEDICAID, SELFPAY ==
--- NOTE | 2021-09-23 13:45 | DI.RAD_ITS ---
Exam(s) XR KNEE RT 3V AP,LAT,LUNA EXAM: XR KNEE RT 3V AP,LAT,LUNA CLINICAL HISTORY: right knee f/u. TECHNIQUE: 2D digital imaging was performed. COMPARISON: No exams were available for comparison FINDINGS: 3 views There is prepatellar soft tissue swelling. No evidence of fracture but there appears to be a small a mount of increased joint fluid. No joint space narrowing. No osteophytes. No patellar displacement . No osteochondral defects. IMPRESSION: Prepatellar soft tissue swelling. No fractures. No degenerative changes. Small joint effusion. DATA REPOSITORY: RADIATION DOSE DELIVERED:
== END 2021-09-23 13:59 | disposition home or self-care (01) ==
LOC: DIORS 13:58
PROVIDERS: PCP Family Medicine; Referring Provider Family Medicine; Visit Provider Student in an Organized Health Care Education/Training Program
DX: M23.91 Unspecified internal derangement of right knee (principal); M79.89 Other specified soft tissue disorders; M25.461 Effusion, right knee
CPT/HCPCS: 73562

== ENCOUNTER 2023-07-22 06:17 | Day surgery (SDC) | payer BC, SELFPAY ==
--- NOTE | 2023-07-21 16:04 | COLE_ITS ---
Date of service: 07/22/23 Time of Service: 08:14 Colonoscopy Report Date of procedure: 07/22/23 Pre-op diagnosis general: CRC/hx of loose stools Post-op diagnosis procedure note: other (Diverticula) Surgeon: Marisela Blanton Anesthesia Type: General:No Airway Estimated blood loss (mL): 1 Pathology: other Complications: None Disposition: same day Prep: Miralax/Dulcolax Retraction Time: 9 Procedure Description: After informed consent was obtained the patient was taken to the procedure room and placed in a left decubitous position. Monitors were applied and a time out was done. The patients name, date of , procedure, allergies to medications and metal in their body was reviewed. The patient was then sedated. Once sedated and comfortable a rectal exam was done. External exam was normal. Internal exam revealed a normal sphincter tone and no palpable masses. The prostate without masses. The scope was then introduced and retrofelexed. No internal hemorrhoids were identified. The scope was then advanced to the cecum without difficulty. The TI and appendiceal orifice were identified. The scope was then slowly retracted over 9 minutes back into the rectum. Polyps or AVMs are identified today. He does have a few small scattered diverticula in the sigmoid colon. There is no signs of active bleeding or infection. Mucosa is pink and healthy with a normal vascular pattern. The scope was removed and the patient was woken up and taken back to Same day surgery in stable condition. He does have a long standing history of diarrhea. Biopsies are taken at 80/50/30 cm and rectum. All specimens are retrieved and no bleeding is noted The patient tolerated the procedure well and there were no immediate complications. Follow up: The patient should follow up in 10 years unless they develop changes in bowel habits or other new gastrointestinal complaints. [place] Bowel Prep [place] Bowel Prep Right Colon: 3 Left Colon: 3 Transverse Colon: 3 Total Score: 9
--- NOTE | 2023-07-21 16:05 | PDOC.DSDIS_ITS ---
Date of service: 07/22/23 Time of Service: 08:16 Discharge Plan Disposition Patient Disposition: Home Condition: Good Discharge Details Reason For Visit: colon scope Attending Provider: Marisela Blanton Primary Care Provider: Abdiaziz Hurt Home Meds and New Rx's Prescriptions: Continued ibuprofen 200 MG capsule 400 mg PO TID PRN acetaminophen [Tylenol Extra Strength] 500 mg tablet 500 mg PO BID PRN Discontinued bisacodyl [Dulcolax (bisacodyl)] 5 mg tablet,delayed release (DR/EC) 5 mg PO ONCE Qty: 4 0RF Rx Instructions: Take per colonoscopy instructions provided by ordering providers office polyethylene glycol 3350 17 gram/dose powder 17 g PO ONCE Qty: 238 0RF Rx Instructions: Take per colonoscopy instructions provided by ordering providers office Discharge Instructions Additional Instructions: DSU Colonoscopy Post- Op Instructions Instructions for Everyone who is given Anesthesia: For your safety, please do the following for the next twenty-four (24) hours: *Do Not operate a motor vehicle (car, truck, motorcycle, etc.) *Do Not drink alcoholic beverages or use any recreational drugs for the first 24 hours or while taking pain medications. The medications in your body may have a reaction that can be dangerous. *Do Not make any important decisions or sign any important papers. Findings: Minor diverticula of the sigmoid colon. Make sure you are moving your bowels regularly and not straining. If you find you are having problems with constipation/increased diarrhea, then consider starting a fiber supplement such as Metamucil daily. Follow up: We did do biopsies today. My office will send you a letter in 2 to 3 weeks time with the results of the biopsies. Plan on reading repeating your colonoscopy in 10 years time, unless you notice any changes in your bowel habits 1. No lifting over 20 pounds or strenuous activity for the first 24 hours after your procedure. After 24 hours there are no restrictions on your activity but you may feel fatigued for a few days. 2. After you arrive home you may have a light meal and return to your normal diet as you can tolerate it without feeling sick to your stomach. 3. You may have a bloated, gaseous feeling in your belly (abdomen) after a colonoscopy. Passing gas and belching will help. Walking or lying down on your left side with your knees flexed may relieve the discomfort. Call the office at [phone] (Office) or [phone] (Hospital) right away if you notice any of the following: a.Vomiting of blood or ?coffee ground stools?. b.Rectal bleeding 1Tbsp, blood clots or continuous bleeding. c.Severe belly (abdominal) pain. d.A hard distended belly (abdomen) and an inability to pass gas. 4. Please don?t expect to have a normal BM (bowel movement) for 2-3 days after your procedure. 5. If there are questions regarding the findings of your procedure, please contact your doctor 6. If you are unable to contact your doctor with a problem, contact the hospital at [phone]. 7. Continue all your regular medications unless directed otherwise. I understand the above instructions and have no questions. Signature of Patient or Adult Escort Name of Responsible Adult Escort Signature of Nurse Date/Time Activity:: see above Diet:: see above Discharge Orders Discharge Orders: Discharge Order (Routine); Ordered 07/22/23 Ordered By: Marisela Blanton DS: Diagnosis Discharge Diagnosis (1) Loose bowel movement: Status: Acute (2) Screening for malignant neoplasm of colon performed: Status: Acute Asessment and Plan: The patient is seen and examined after their colonoscopy.? The patient has been able to pass gas.? They are not having abdominal pain.? They have been able to tolerate liquids and a snack.? They do not have any nausea or vomiting.? They are not having any chest pain or shortness of breath.??? They are not having any rectal bleeding. Their vital signs have been stable-see nursing notes. We discussed findings during their colonoscopy, and any biopsies that were done/polyps that were removed. The patient will be sent a letter with any biopsy results, and when to repeat the colonoscopy.-see discharge instructions. Patient was given explicit instructions to follow-up regarding colonoscopy-refer to discharge instructions.? We reviewed resumption of medications. Patient verbalized understanding and discharged in stable and satisfactory condition- See nursing notes. (3) Diverticula of colon: Status: Acute
[2023-07-22 06:37] VITALS: BP 113/75; PULSE 58; RESP 16; TEMP 36.5; O2SAT 97
[2023-07-22] MEDS: Lactated Ringers 1,000 ML 80 ML IV (06:40)
--- NOTE | 2023-07-22 07:03 | ANES.PREOP_ITS ---
General Info Date of Service Date Performed: 07/22/23 Height: 5 ft 8 in Weight: 94.3 kg Body Mass Index (BMI): 31.6 Surgical Procedure: Operation Date: 07/22/23 07:35 Proposed Procedure Side Surgeon maría elena Blanton, Meds Allergies and Home Medications Allergies Allergy/AdvReac Type Severity Reaction Status Date / Time No Known Allergies Allergy Verified 07/22/23 06:23 Home Medication Medication Instructions Recorded ibuprofen 200 mg capsule 400 mg PO TID PRN 12/07/12 acetaminophen 500 mg tablet 500 mg PO BID PRN 05/27/23 (Tylenol Extra Strength) Current Visit Medications: Current Medications Generic Name Dose Route Start Last Admin Trade Name Freq PRN Reason Stop Dose Admin Hyoscyamine Sulfate 0.125 mg 07/22/23 04:02 Hyoscyamine 0.125 Mg Sl/Oral/Chew SL 08/21/23 04:01 DIRECTED PRN Ringer's Solution 1,000 mls @ 80 mls/hr 07/22/23 06:00 07/22/23 06:40 IV 07/22/23 23:59 80 mls/hr INFUSION KAREN Administration IV Miscellaneous Supplies 1 each 07/22/23 06:00 Iv Access IV 07/22/23 23:59 DIRECTED KAREN Ondansetron HCl 4 mg 07/22/23 04:02 Ondansetron 4 Mg/2 Ml Vial IVP 08/21/23 04:01 Q4H PRN PRN Nausea / Vomiting Sodium Chloride 0 ml 07/22/23 06:00 Normal Saline Flush 10 Ml Syr IV 07/22/23 23:59 PRN PRN Sodium Chloride 0 ml 07/22/23 06:00 Normal Saline 10 Ml Vial IJ 07/22/23 23:59 DIRECTED PRN Sterile Water 0 ml 07/22/23 06:00 Water,Injection,Sterile 10 Ml Vial IJ 07/22/23 23:59 DIRECTED PRN PFSH Active Problems Active Problems: Problem Status Onset Code Screening for malignant neoplasm of colon performed Z12.11 Loose bowel movement R19.5 Acute meniscal injury of right knee ~05/2021 S83.8X1A Chondromalacia of right patella M22.41 Medical History Medical History Low back pain Sciatica Tinea manus (11/08/13) Dr. Baker Tinea corporis (11/08/13) Dr Baker Surgical History Surgical History H/O discectomy hx of back surgeries x 3. [facility] and [facility] Tobacco Smoking/Tobacco Use Status: Former Tobacco Use Alcohol Alcohol Intake: current Alcohol intake frequency: a few times a week Alcohol type: beer Substance Use Substance use: Occasionally Substance use type: marijuana Vital Signs and Lab Results Vital Signs Most Recent Vital Signs in EMR: Most Recent Vital Signs Temp Pulse Resp BP Pulse Ox 36.5 C 58 L 16 113/75 97 07/22/23 06:37 07/22/23 06:37 07/22/23 06:37 07/22/23 06:37 07/22/23 06:37 Lab Results Blood Type / Crossmatch: No Data to Display Complete Blood Count: No Data to Display Complete Metabolic Panel: No Data to Display Liver Function Panel: No Data to Display Coagulation Panel: No Data to Display Cardiac Panel: No Data to Display Arterial Blood Gas: No Data to Display Venous Blood Gas: No Data to Display Pancreas Panel: No Data to Display Thyroid Panel: No Data to Display Infectious Disease: No Data to Display Blood Cultures: No Data to Display Toxicology Panel: No Data to Display Anesthesia Assessment and Plan Anesthesia History Personal History: No History of Anesthesia Complications Family History: Family History Unknown Exercise Tolerance Exercise Tolerance: Metabolic Equivalents>4 Pertinent Negatives Pertinent Negatives: No Symptoms of GERD, No Major Cardiovascular Symptoms or Complaints and No Major Pulmonary Symptoms or Complaints Cardiac & Pulmonary Exam Cardiac Exam: Normal S1/S2 Heart Sounds Pulmonary Exam: Clear Bilateral Breath Sounds Implantable Cardiac Device Does patient have a Pacemaker or an ICD?: No Airway Exam Known Difficult Airway: No Mallampati Class: 1 Mouth Opening: Normal (> 3cm) Thyromental Distance: Greater than 3 cm Facial Hair: Full [place] Neck Range of Motion: Full ROM Neck Circumference: Normal Teeth Condition: Normal Dentition ASA Classification ASA Score: ASA 2 Emergency Case?: No NPO Status NPO Status: NPO Clears >2 hours, Solids >8 hours Anesthesia Plan Resuscitation Status: Full Code Anesthesia Technique: General Anesthesia Airway Planned: Natural Airway Monitors Used: Standard Monitors Preoperative Comments:: No Hx of GERD, no nausea associated with prep
[2023-07-22 07:05] VITALS: BMI 31.6
--- NOTE | 2023-07-22 07:49 | BOWEL_PTH ---
PATIENT: Fco Zapata LOC: [facility] U#:[id number] AGE/SX: 47/M ROOM: RE07/22/[address]: Marisela Blanton : 1975 BED: DIS: 07/22/2023 SPEC #: [id number] RECD: 07/22/23 12:35 STATUS: MERON REYarelis #: [id number] WILFREDO: 07/22/23 07:[address]: Marisela Blanton DEPT: Surgical Specimen RECD BY: eJs Mello ENTERED: 07/22/23 12:37 SP TYPE: Bowel OTHR DR: Abdiaziz Hurt Tissues: 1 - BIOPSY BOWEL 2 - BIOPSY BOWEL 3 - BIOPSY BOWEL 4 - BIOPSY BOWEL Procedures: GROSS AND MICRO LEVEL 4 Comments: [id number]
[2023-07-22 08:04] VITALS: BP 107/76; PULSE 50; RESP 16; TEMP 36.4; O2SAT 99
--- NOTE | 2023-07-22 08:10 | W.ANESPOSTOP ---
Postoperative Evaluation Date, Time and Location Date Performed: 07/22/23 Time Performed: 08:05 Patient Location: Day Surgery Unit Vital Signs Most Recent Imported Vital Signs: Most Recent Vital Signs Temp Pulse Resp BP Pulse Ox 36.4 C L 50 L 16 107/76 99 07/22/23 08:04 07/22/23 08:04 07/22/23 08:04 07/22/23 08:04 07/22/23 08:04 Pain Score Most Recent Pain Score: Most Recent Pain Score Pain Level 0 07/22/23 08:04 Assessment Mental Status: Arousable with meaningful communication Airway and Respiratory Function: Patent airway with normal (patient baseline) respiratory exam Cardiovascular Function: Hemodynamically Stable Hydration Status: Adequately Hydrated Nausea & Vomiting: No Nausea or Vomiting Pain: Pt. Denies Any Pain Peripheral Nerve Block: Patient did not receive a nerve block
[2023-07-22 08:34] VITALS: BP 114/80; PULSE 55; RESP 16; TEMP 36.8; O2SAT 97
== END 2023-07-22 09:02 | disposition home or self-care (01) ==
LOC: SUR 06:17
PROVIDERS: PCP Family Medicine; Visit Provider Surgery
PROC: 0DJD8ZZ Inspection of Lower Intestinal Tract, Via Natural or Artificial Opening Endoscopic (ICD-10-PCS; CPT 45378; principal; 2023-07-22 07:30)
DX: Z12.11 Encounter for screening for malignant neoplasm of colon; K57.30 Diverticulosis of large intestine without perforation or abscess without bleeding
CPT/HCPCS: 45380; 88305; J2001; J2704

== ENCOUNTER 2024-06-25 15:19 | Outpatient (REF) | payer BC, SELFPAY ==
[2024-06-25 16:09] LABS: ALT 31 U/L (16-63); AST 20 U/L (15-37); Alkaline Phosphatase 64 U/L (46-116); Anion Gap 6.3 mmol/L (3-11); BUN 20 mg/dL (7-18); Bilirubin, Total 0.4 mg/dL (0.2-1.0); CO2 30.7 mmol/L (21.0-32.0); CREATININE 0.9 mg/dL (0.70-1.30); Calcium 9.3 mg/dL (8.5-10.1); Calculated LDL 103 mg/dL (<100); Chloride 106 mmol/L (98-107); Cholesterol 174 mg/dL (<200); Glucose 99 mg/dL (74-106); HDL Cholesterol 61 mg/dL (>or=40); Sodium 143 mmol/L (136-145); Total Protein 7.1 g/dL (6.4-8.2); Triglyceride 52 mg/dL (<150)
[2024-06-26 09:52] LABS: Hepatitis C Ab w Rflx HCV PCR Negative (Negative)
[2024-06-26 10:19] LABS: HIV-1/2 Ag & Ab Screen Negative (Negative)
== END 2024-06-25 15:20 | disposition home or self-care (01) ==
LOC: NCHCN 15:19
PROVIDERS: PCP Family Medicine; Visit Provider Family Medicine
DX: Z13.220 Encounter for screening for lipoid disorders (principal); Z11.59 Encounter for screening for other viral diseases; Z11.4 Encounter for screening for human immunodeficiency virus [HIV]; Z68.33 Body mass index [BMI] 33.0-33.9, adult
CPT/HCPCS: 80053; 80061; 86803; 87389

== ENCOUNTER 2025-01-14 21:15 | Outpatient (REF) | payer BC, SELFPAY ==
[2025-01-16 11:17] LABS: Lyme Ab w Rflx to Lyme Confirm Negative (Negative)
[2025-01-18 13:42] LABS: Babesia divergens/MO-1 Negative (Negative); Ehrlichia muris eauclairensis Negative (Negative)
[2025-01-18 14:14] LABS: B. miyamotoi PCR Positive (Negative)
== END 2025-01-14 21:16 | disposition home or self-care (01) ==
LOC: NCHCN 21:15
PROVIDERS: PCP Family Medicine; Visit Provider Family Medicine
DX: T14.90XA Injury, unspecified, initial encounter (principal); W57.XXXA Bitten or stung by nonvenomous insect and other nonvenomous arthropods, initial encounter
CPT/HCPCS: 87798; 86618